=== PATIENT | female | born 1970 | race Caucasian/White ===

== ENCOUNTER 2016-09-22 08:57 | Emergency (ER) | payer OTHER ==
[2016-09-22] MEDS ORDERED: ONDANSETRON 4MG/2ML VIAL (J2405) As Ordered ONE (09:55)
[2016-09-22] MEDS ORDERED: KETOROLAC 30 MG/ML VIAL (J1885) As Ordered ONE (09:55)
[2016-09-22 10:11] LABS: BASO # 0.2 K/mm3 (0.0-0.2); BASO % 1.4 % (0.0-1.0); EOS # 0.2 K/mm3 (0.0-0.50); EOS % 1.3 % (0.0-3.0); LARGE UNSTAINED CELL # 0.2 K/mm3 (0.0-0.4); LARGE UNSTAINED CELL % 1.1 % (0.0-4.0); LYMPH # 2.5 K/mm3 (1.5-4.5); LYMPH % 15.1 % (24.0-44.0); MEAN CORPUSCULAR HEMOGLOBIN 32.3 pg (27.0-33.0); MEAN CORPUSCULAR HGB CONC 33.1 g/dl (32.0-36.5); MEAN CORPUSCULAR VOLUME 97.7 fl (80.0-96.0); MONO # 0.6 K/mm3 (0.0-0.8); MONO % 3.9 % (0.0-5.0); NEUTROPHILS # 12.1 K/mm3 (1.8-7.7); NEUTROPHILS % 77.2 % (36.0-66.0); PLATELET COUNT, AUTOMATED 280 k/mm3 (150-450); RED CELL DISTRIBUTION WIDTH 12.8 % (11.5-14.5); WHITE BLOOD COUNT 15.7 K/mm3 (4.0-10.0)
[2016-09-22 10:18] LABS: ALBUMIN 4.2 GM/DL (3.2-5.2); ALKALINE PHOSPHATASE 74 U/L (45-117); ALT/SGPT 29 U/L (12-78); AMYLASE 47 U/L (25-115); ANION GAP 5 MEQ/L (8-16); AST/SGOT 20 U/L (15-37); BILIRUBIN,DIRECT 0.1 MG/DL (0.0-0.2); BILIRUBIN,TOTAL 0.5 MG/DL (0.2-1.0); BLOOD UREA NITROGEN 11 MG/DL (7-18); CALCIUM LEVEL 9.3 MG/DL (8.5-10.1); CARBON DIOXIDE LEVEL 29 MEQ/L (21-32); CHLORIDE LEVEL 105 MEQ/L (98-107); CREATININE FOR GFR 0.72 MG/DL (0.55-1.02); GLOMERULAR FILTRATION RATE > 60.0 (>58); GLUCOSE, FASTING 84 MG/DL (70-105); POTASSIUM SERUM 3.9 MEQ/L (3.5-5.1); SODIUM LEVEL 139 MEQ/L (136-145); TOTAL PROTEIN 7.2 GM/DL (6.4-8.2)
--- NOTE | 2016-09-22 11:06 | REP ---
CT study of the abdomen and pelvis without IV or oral contrast: History: Abdominal pain right-sided and umbilical. 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 The lung bases are clear. There is an accessory splenule in the left upper quadrant. The liver and spleen are normal in size and otherwise normal and homogeneous in texture. The gallbladder is unremarkable. No pancreatic lesion is seen. No adrenal mass is observed on either side. There is no evidence of hydronephrosis, intrarenal calculus or mass lesion. Normal caliber aorta is seen. No retroperitoneal mass or adenopathy is observed. There is scattered pancolonic diverticulosis without CT evidence of diverticulitis. A normal appendix is seen at the tip of the cecum. Uterus is mildly enlarged measuring 10.4 x 5.8 x 7.3 cm. No free fluid is seen. No adnexal mass or significant cyst is seen. No abdominal wall defect is observed. No evidence of free intraperitoneal air. No bony destructive lesion is seen. Impression: Pancolonic diverticulosis without CT evidence of diverticulitis. Normal appendix seen. No acute intra-abdominal abnormality. Mildly enlarged uterus. Signed by Monroe Grady MD 09/22/2016 12:33 P
--- NOTE | 2016-09-22 11:12 | REP ---
RIGHT UPPER QUADRANT SONOGRAPHY: HISTORY: Biliary colic. COMPARISON STUDY: CT abdomen and pelvis from this date. FINDINGS: Scanning through the right upper quadrant of the abdomen demonstrates a normal sized, thin-walled gallbladder without evidence of stone or polyp. The gallbladder appears partially contracted. The patient relates having eaten this a.m. Common bile duct is normal measuring 0.4 cm in greatest diameter. There is a 0.7 cm hyperechoic nodule in the left lobe consistent with a benign hemangioma. No other focal liver lesion is seen. Liver size is normal. No pancreatic abnormality is observed. No right renal abnormality is seen. There is no evidence of ascites. The right kidney measures 11.8 x 6.2 x 4.7 cm. IMPRESSION: Partially contracted appearing gallbladder, 0.7 cm benign hemangioma in the left lobe, otherwise negative right upper quadrant sonography. Signed by Monroe Grady MD 09/22/2016 12:33 P
--- NOTE | 2016-09-22 12:56 | EDDOCDS ---
Physician Documentation [facility] Name: Sheyla Amin Age: 46 yrs Sex: Female : 1970 Arrival Date: 09/22/2016 Time: 08:57 Bed I5 / M5 Private MD: Disposition: 09/22/16 12:18 Discharged to Home/Self Care. Impression: Generalized abdominal pain, Nausea, Diverticulosis of large intestine without perforation or abscess without bleeding, Hemangioma - 17cm Benign Hemangioma in Left Lobe of Liver found on U/S of Gallbladder. - Condition is Stable. - Discharge Instructions: Abdominal Pain, Adult, Nausea, Adult, Diverticulosis. - Prescriptions for Bentyl 20 mg Oral Tablet - take 1 tablet by ORAL route every 6 hours As needed; 20 tablet. Cipro 500 mg Oral Tablet - take 1 tablet by ORAL route every 12 hours; 14 tablet. Percocet 5- 325 mg Oral Tablet - take 1 tablet by ORAL route every 6 hours As needed MDD: 4 tabs; 10 tablet. Reglan 10 mg Oral Tablet - take 1 tablet by ORAL route every 6 hours take 30 minutes before meals and at bedtime; 20 tablet. - Medication Reconciliation, Local Pharmacy Hours, Referral List Call for Appointment, Work Release Form - 2 day form. - [facility] ; When: 1 - 2 days; Reason: Recheck today's complaints, Continuance of care. Follow up: Emergency Department; Reason: Worsening of conditions. Follow up: David Carver MD; When: Call to arrange an appointment; Reason: Further diagnostic work-up, Recheck today's complaints, Continuance of care. - Problem is new. - Symptoms have improved. Historical: - Allergies: SUCCINYLCHOLINE; - Home Meds: 1. none - PMHx: Seasonal Allergies; - PSHx: ; - Social history: Smoking status: Patient uses tobacco products, current every day smoker. No barriers to communication noted, The patient speaks fluent Togolese, Speaks appropriately for age. - Family history: Not pertinent. - : The pt / caregiver states he / she is not on anticoagulants. Home medication list is obtained from the patient. - Exposure Risk Screening:: None identified. 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 6 in. (167.64 cm) (R); 10:30 Pain 3/10; mcp 10:31 jam1 10:42 BP 120 / 65; Pulse 90; Resp 20; Temp 97.9; Pulse Ox 99% ; Pain 2/10; jam1 12:21 BP 115 / 65; Pulse 76; Resp 20; Temp 97.0; Pulse Ox 99% ; Pain 0/10; jam1 09:01 Body Mass Index 21.63 (60.78 kg, 167.64 cm) srm 10:31 pt at ultrosound at this time could not do v/s jam1 MDM: 09:40 NS 0.9% 1000 ml IV at bolus once ordered. ef1 09:40 Ondansetron 4 mg IVP once ordered. ef1 09:40 IV Saline Lock ordered. ef1 09:40 Undress patient appropriately for examination ordered. ef1 09:40 UCG by Nursing ordered. ef1 09:40 ketorolac 30 mg IVP once ordered. ef1 09:41 CT ABD & PELVIS: No Contrast Ordered. EDMS 09:41 Amylase Ordered. EDMS 09:41 Basic Metabolic Profile Ordered. EDMS 09:41 CBC with Diff Ordered. EDMS 09:42 Lipase Ordered. EDMS 09:42 Liver Profile Ordered. EDMS 09:42 Urinalysis Ordered. EDMS 09:42 Urine Culture Ordered. EDMS 09:42 Gallbladder US Ordered. EDMS 09:42 Financial registration complete. lg 09:42 NOTHING BY MOUTH+DIET ordered. EDMS 09:58 [facility] Payment Agreement was scanned into [employer] and attached to record. lg 10:46 Basic Metabolic Profile Reviewed. ef1 10:46 CBC with Diff Reviewed. ef1 10:46 Amylase Reviewed. ef1 10:46 Lipase Reviewed. ef1 10:46 Liver Profile Reviewed. ef1 10:46 Urinalysis Reviewed. ef1 12:15 CT ABD & PELVIS: No Contrast Reviewed. ef1 12:15 Gallbladder US Reviewed. ef1 Point of Care Testing: Urine : 09:52 hCG Reading: Negative; jam1 Ranges: Administered Medications: 10:00 Drug: NS 0.9% 1000 ml [sodium chloride 0.9 % intravenous solution] Route: IV; Rate: kpj bolus; Site: left antecubital; 12:30 Follow up: IV Status: Completed infusion; Infusion discontinued [facility] 10:00 Drug: Ondansetron 4 mg [ondansetron HCl 2 mg/mL intravenous solution (2 mL)] Route: kpj IVP; Site: left antecubital; 10:02 Drug: ketorolac 30 mg [ketorolac 30 mg/mL (1 mL) injection solution (1 mL)] Route: IVP; [facility] Site: left antecubital; 10:30 Follow up: Pain 10/30 Adult; Response: Pain is decreased [facility] 10:30 Follow up: Response: Pain is decreased [facility] Signatures: Dispatcher [employer] EDDaxa Kohli RN RN Lori Poe RN RN srm Ganter, LoriLee, Tha Reg lg Orin Sharp, PA-C PA-C Catrachita Greene RN [facility] The chart was reviewed and I authenticate all verbal orders and agree with the evaluation and treatment provided.Attachments: 09:58 [facility] Payment Agreement lg MTDD
--- NOTE | 2016-09-22 12:56 | EDDOCDS ---
Nurse's Notes [facility] Name: Sheyla Amin Age: 46 yrs Sex: Female : 1970 Arrival Date: 09/22/2016 Time: 08:57 Bed I5 / M5 Private MD: Diagnosis: Generalized abdominal pain;Nausea;Diverticulosis of large intestine without perforation or abscess without bleeding;Hemangioma-17cm Benign Hemangioma in Left Lobe of Liver found on U/S of Gallbladder Presentation: 09/22 09:00 Presenting complaint: Patient states: upper abd pain since last night. nausea no srm vomiting or diarrhea. no abnormal vag bledding. Risk factors: the patient reports no vaginal bleeding. Suicide/Homicide risk assessment- the patient denies having any suicidal and/or homicidal ideations and does not present with any other emotional, behavioral or mental health complaints. Status: Patient is not a patient service technician pst or dependent. Transition of care: patient was not received from another setting of care. 09:00 Acuity: KAYLIN Level 3 srm 09:00 Method Of Arrival: Walkin/Carried/Asstd srm 09:03 Adult Sepsis Screening: The patient does not have new or worsening altered mentation. srm Patient's respiratory rate is less than 22. Systolic blood pressure is greater than 100. Patient has a qSOFA score of 0- Negative Sepsis Screen. Triage Assessment: 09:01 General: Appears in no apparent distress, Behavior is appropriate for age, cooperative. srm Pain: Pain currently is 5 out of 10 on a pain scale. HIV screening NA for this visit Offered previously. GI: Reports upper abdominal pain, nausea. 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 none - PMHx: Seasonal Allergies; - PSHx: ; - Social history: Smoking status: Patient uses tobacco products, current every day smoker. No barriers to communication noted, The patient speaks fluent Tajik, Speaks appropriately for age. - Family history: Not pertinent. - : The pt / caregiver states he / she is not on anticoagulants. Home medication list is obtained from the patient. - Exposure Risk Screening:: None identified. Screenin:54 Screening information is obtained from the patient. Fall risk: No risks identified. mcp Assistance ADL's: requires no assistance with activities of daily living. Abuse/DV Screen: The patient / caregiver reports he/she is: not in a situation that causes fear, pain or injury. Nutritional screening: No deficits noted. Advance Directives: Currently, there is no health care proxy. There is no active DNR order. There is no Power of Pension Adviser. home support is adequate. Assessment: 09:53 General: Appears uncomfortable, Behavior is cooperative. Pain: Location: epigastric mcp area Pain currently is 7 out of 10 on a pain scale. Neurological: No deficits noted. Respiratory: Airway is patent Respiratory effort is even, unlabored. GI: Abdomen is non- distended Bowel sounds present X 4 quads. Abd is soft X 4 quads Abd is tender to palpation in epigastric area. Derm: Skin is pink, warm & dry. 10:45 General: Pt states feels much better. IV patent--site without any signs of infiltration.mcp 11:30 Reassessment: Patient appears in no apparent distress at this time. Patient states kpj feeling better. Patient states symptoms have improved. waiting disposition IV intact. denies nausea or vomiting, denies pain.. 12:30 General: Appears in no apparent distress, comfortable, Behavior is appropriate for age, kpj pleasant. Pain: Denies pain. Neurological: Level of Consciousness is awake, alert. Respiratory: Airway is patent Respiratory effort is even, unlabored, Respiratory pattern is regular, symmetrical. GI: Abdomen is non- distended Bowel sounds present X 4 quads. Abd is soft X 4 quads Abd is non tender X 4 quads. Derm: Skin is pink, warm & dry. Vital Signs: 09:01 BP 114 / 61; Pulse 96; Resp 18; Temp 97.1(O); Pulse Ox 100% on R/A; Weight 60.78 kg; srm Height 5 ft. 6 in. (167.64 cm) (R); 10:30 Pain 3/10; mcp 10:31 jam1 10:42 BP 120 / 65; Pulse 90; Resp 20; Temp 97.9; Pulse Ox 99% ; Pain 2/10; jam1 12:21 BP 115 / 65; Pulse 76; Resp 20; Temp 97.0; Pulse Ox 99% ; Pain 0/10; jam1 09:01 Body Mass Index 21.63 (60.78 kg, 167.64 cm) [facility] 10:31 pt at ultrosound at this time could not do v/s jam1 Vitals: 09:01 Log In Time: September 22, 2016 at 08:59. [facility] ED Course: 08:58 Patient visited by Minerva Horton. 5 08:58 Patient moved to Waiting jp5 09:01 Triage Initiated srm 09:04 Patient moved to Triage 1 srm 09:28 Orin Sharp PA-C is PHCP. ef1 09:28 Stoney Minaya MD is Attending Physician. ef1 09:32 Patient visited by Orin Sharp PA-C. ef1 09:45 Patient moved to I5 / jam 09:52 Urine Culture Sent. [facility] 09:52 Urinalysis Sent. [facility] 09:52 Amylase Sent. [facility] 09:52 Basic Metabolic Profile Sent. [facility] 09:52 CBC with Diff Sent. [facility] 09:52 Lipase Sent. [facility] 09:52 Liver Profile Sent. [facility] 09:55 Patient visited by Catrachita Talbert RN. [facility] 09:55 The patient / caregiver is instructed regarding the plan of care and ED course. Patient mcp has correct armband on for positive identification. Placed in gown. Bed in low position. Call light in reach. Adult w/ patient. 09:55 Inserted saline lock: 20 gauge in left antecubital area and blood collected. The [facility] patient tolerated the procedure well. Missed attempts: 20 gauge X 1 in right antecubital area, Bleeding controlled, band aid applied, catheter tip intact. Labs drawn. (by ED staff). Sent per order to lab. 09:56 Pt greeted and oriented to ED. Patient advised of names of staff involved in care, [facility] location of call tee, wait times and NPO status. Patient has correct armband on for positive identification. Placed in gown. Bed in low position. Call light in reach. Side rails up X 1. Adult w/ patient. Door closed. 09:58 [facility] Payment Agreement was scanned into [employer] and attached to record. lg 10:14 Patient moved to Ultrasound br3 10:46 Patient visited by Orin Sharp PA-C. ef1 10:50 Patient moved to I5 / jam1 11:34 Patient visited by Catrachita Talbert RN. mcp 11:44 CT ABD & PELVIS: No Contrast Returned. EDMS 11:44 Gallbladder US Returned. EDMS 12:15 Patient visited by Orin Sharp PA-C. ef1 12:16 Patient visited by Roxanne Mcmahon PCA. jam1 12:18 [facility] is Referral Physician. ef1 12:27 David Carver MD is Referral Physician. ef1 12:30 No apparent distress. kpj 12:30 The patient / caregiver is instructed regarding the plan of care and ED course. kpj 12:30 Discontinued IV lock intact, bleeding controlled, pressure dressing applied, No kpj redness/swelling at site. No procedures done that require assistance. Administered Medications: 10:00 Drug: NS 0.9% 1000 ml [sodium chloride 0.9 % intravenous solution] Route: IV; Rate: kpj bolus; Site: left antecubital; 12:30 Follow up: IV Status: Completed infusion; Infusion discontinued kpj 10:00 Drug: Ondansetron 4 mg [ondansetron HCl 2 mg/mL intravenous solution (2 mL)] Route: kpj IVP; Site: left antecubital; 10:02 Drug: ketorolac 30 mg [ketorolac 30 mg/mL (1 mL) injection solution (1 mL)] Route: IVP; kpj Site: left antecubital; 10:30 Follow up: Pain 3/10 Adult; Response: Pain is decreased [facility] 10:30 Follow up: Response: Pain is decreased kp Point of Care Testing: Urine : 09:52 hCG Reading: Negative; jam1 Ranges: Order Results: Lab Order: Amylase; SPEC'M 09/22/16 09:50 Test: AMYLASE; Value: 47; Range: 25-115; Units: U/L; Status: F Lab Order: Basic Metabolic Profile; SPEC'M 09/22/16 09:50 Test: GLUCOSE, FASTING; Value: 84; Range: 70-105; Units: MG/DL; Status: F Test: BLOOD UREA NITROGEN; Value: 11; Range: 7-18; Units: MG/DL; Status: F Test: CREATININE FOR GFR; Value: 0.72; Range: 0.55-1.02; Units: MG/DL; Status: F Test: GLOMERULAR FILTRATION RATE; Value: > 60.0; Range: >58; Status: F Test: SODIUM LEVEL; Value: 139; Range: 136-145; Units: MEQ/L; Status: F Test: POTASSIUM SERUM; Value: 3.9; Range: 3.5-5.1; Units: MEQ/L; Status: F Test: CHLORIDE LEVEL; Value: 105; Range: 98-107; Units: MEQ/L; Status: F Test: CARBON DIOXIDE LEVEL; Value: 29; Range: 21-32; Units: MEQ/L; Status: F Test: ANION GAP; Value: 5; Range: 8-16; Abnormal: Below low normal; Units: MEQ/L; Status: F Test: CALCIUM LEVEL; Value: 9.3; Range: 8.5-10.1; Units: MG/DL; Status: F Test Note: ; Units are mL/min/1.73 m2 Chronic Kidney Disease Staging per NKF: Stage I & II GFR >=60 Normal to Mildly Decreased Stage III GFR 30-59 Moderately Decreased Stage IV GFR 15-29 Severely Decreased Stage V GFR <15 Very Little GFR Left ESRD GFR <15 on CUSTOMER SERVICE REPRESENTATIVE Lab Order: CBC with Diff; SPEC'M 09/22/16 09:50 Test: WHITE BLOOD COUNT; Value: 15.7; Range: 4.0-10.0; Abnormal: Above high normal; Units: K/mm3; Status: F Test: RED BLOOD COUNT; Value: 4.82; Range: 4.00-5.40; Units: M/mm3; Status: F Test: HEMOGLOBIN; Value: 15.6; Range: 12.0-16.0; Units: g/dl; Status: F Test: HEMATOCRIT; Value: 47.1; Range: 36.0-47.0; Abnormal: Above high normal; Units: %; Status: F Test: MEAN CORPUSCULAR VOLUME; Value: 97.7; Range: 80.0-96.0; Abnormal: Above high normal; Units: fl; Status: F Test: MEAN CORPUSCULAR HEMOGLOBIN; Value: 32.3; Range: 27.0-33.0; Units: pg; Status: F Test: MEAN CORPUSCULAR HGB CONC; Value: 33.1; Range: 32.0-36.5; Units: g/dl; Status: F Test: RED CELL DISTRIBUTION WIDTH; Value: 12.8; Range: 11.5-14.5; Units: %; Status: F Test: PLATELET COUNT, AUTOMATED; Value: 280; Range: 150-450; Units: k/mm3; Status: F Test: NEUTROPHILS %; Value: 77.2; Range: 36.0-66.0; Abnormal: Above high normal; Units: %; Status: F Test: LYMPH %; Value: 15.1; Range: 24.0-44.0; Abnormal: Below low normal; Units: %; Status: F Test: MONO %; Value: 3.9; Range: 0.0-5.0; Units: %; Status: F Test: EOS %; Value: 1.3; Range: 0.0-3.0; Units: %; Status: F Test: BASO %; Value: 1.4; Range: 0.0-1.0; Abnormal: Above high normal; Units: %; Status: F Test: LARGE UNSTAINED CELL %; Value: 1.1; Range: 0.0-4.0; Units: %; Status: F Test: NEUTROPHILS #; Value: 12.1; Range: 1.8-7.7; Abnormal: Above high normal; Units: K/mm3; Status: F Test: LYMPH #; Value: 2.5; Range: 1.5-4.5; Units: K/mm3; Status: F Test: MONO #; Value: 0.6; Range: 0.0-0.8; Units: K/mm3; Status: F Test: EOS #; Value: 0.2; Range: 0.0-0.50; Units: K/mm3; Status: F Test: BASO #; Value: 0.2; Range: 0.0-0.2; Units: K/mm3; Status: F Test: LARGE UNSTAINED CELL #; Value: 0.2; Range: 0.0-0.4; Units: K/mm3; Status: F Lab Order: Lipase; SPEC09/22/16 09:50 Test: LIPASE; Value: 133; Range: 73-393; Units: U/L; Status: F Lab Order: Liver Profile; SPEC'09/22/16 09:50 Test: AST/SGOT; Value: 20; Range: 15-37; Units: U/L; Status: F Test: ALT/SGPT; Value: 29; Range: 12-78; Units: U/L; Status: F Test: ALKALINE PHOSPHATASE; Value: 74; Range: 45-117; Units: U/L; Status: F Test: BILIRUBIN,TOTAL; Value: 0.5; Range: 0.2-1.0; Units: MG/DL; Status: F Test: BILIRUBIN,DIRECT; Value: 0.1; Range: 0.0-0.2; Units: MG/DL; Status: F Test: TOTAL PROTEIN; Value: 7.2; Range: 6.4-8.2; Units: GM/DL; Status: F Test: ALBUMIN; Value: 4.2; Range: 3.2-5.2; Units: GM/DL; Status: F Test: ALBUMIN/GLOBULIN RATIO; Value: 1.40; Range: 1.00-1.93; Status: F Lab Order: Urinalysis; SPEC'M 09/22/16 09:47 Test: APPEARANCE, URINE; Value: CLEAR; Range: CLEAR; Status: F Test: COLOR, URINE; Value: STRAW; Range: YELLOW; Status: F Test: PH,URINE; Value: 7.0; Range: 5.0-9.0; Units: UNITS; Status: F Test: SPECIFIC GRAVITY URINE AUTO; Value: 1.005; Range: 1.002-1.035; Status: F Test: PROTEIN, URINE AUTO; Value: NEGATIVE; Range: NEGATIVE; Units: mg/dL; Status: F Test: GLUCOSE, URINE (UA) AUTO; Value: NEGATIVE; Range: NEGATIVE; Units: mg/dL; Status: F Test: KETONE, URINE AUTO; Value: NEGATIVE; Range: NEGATIVE; Units: mg/dL; Status: F Test: UROBILINOGEN, URINE AUTO; Value: 0.2; Range: 0.0-2.0; Units: mg/dL; Status: F Test: BILIRUBIN, URINE AUTO; Value: NEGATIVE; Range: NEGATIVE; Status: F Test: NITRITE, URINE AUTO; Value: NEGATIVE; Range: NEGATIVE; Status: F Test: LEUKOCYTE ESTERASE, URINE AUTO; Value: NEGATIVE; Range: NEGATIVE; Status: F Test: BLOOD, URINE BLOOD; Value: NEGATIVE; Range: NEGATIVE; Status: F Test: WBC, URINE AUTO; Value: 0; Range: 0-3; Units: /HPF; Status: F Test: RBC, URINE AUTO; Value: 2; Range: 0-3; Units: /HPF; Status: F Test: BACTERIA, URINE AUTO; Value: NEGATIVE; Range: NEGATIVE; Status: F Test: SQUAMOUS EPITHELIAL CELL UR AU; Value: 0; Range: 0-6; Units: /HPF; Status: F Test: MUCUS, URINE; Value: SMALL; Range: NEGATIVE; Status: F Test: HYALINE CAST, URINE AUTO; Value: 0; Range: 0-1; Units: /LPF; Status: F Radiology Order: CT ABD & PELVIS: No Contrast Test: CT ABD & PELVIS: No Contrast REASON FOR EXAMINATION: Abdomen Pain; CT study of the abdomen and pelvis without IV or oral contrast:; ; History: Abdominal pain right-sided and umbilical.; ; Findings: Preliminary digital supervisor twisting department radiograph demonstrates bilateral tubal; ligation clamps in the pelvis and a normal bowel gas pattern. The lung bases are; clear.; ; There is an accessory splenule in the left upper quadrant. The liver and spleen; are normal in size and otherwise normal and homogeneous in texture. The; gallbladder is unremarkable. No pancreatic lesion is seen. No adrenal mass is; observed on either side. There is no evidence of hydronephrosis, intrarenal; calculus or mass lesion. Normal caliber aorta is seen. No retroperitoneal mass; or adenopathy is observed. There is scattered pancolonic diverticulosis without; CT evidence of diverticulitis. A normal appendix is seen at the tip of the; cecum. Uterus is mildly enlarged measuring 10.4 x 5.8 x 7.3 cm. No free fluid; is seen. No adnexal mass or significant cyst is seen. No abdominal wall defect; is observed. No evidence of free intraperitoneal air. No bony destructive; lesion is seen.; ; Impression:; ; Pancolonic diverticulosis without CT evidence of diverticulitis. Normal appendix; seen. No acute intra-abdominal abnormality. Mildly enlarged uterus.; ; ; ; ; Unreviewed; Radiology Order: Gallbladder US Test: Gallbladder US REASON FOR EXAMINATION: Biliary Colic; RIGHT UPPER QUADRANT SONOGRAPHY:; ; HISTORY: Biliary colic.; ; COMPARISON STUDY: CT abdomen and pelvis from this date.; ; FINDINGS: Scanning through the right upper quadrant of the abdomen demonstrates a; normal sized, thin-walled gallbladder without evidence of stone or polyp. The; gallbladder appears partially contracted. The patient relates having eaten this; a.m. Common bile duct is normal measuring 0.4 cm in greatest diameter. There is; a 0.7 cm hyperechoic nodule in the left lobe consistent with a benign hemangioma.; No other focal liver lesion is seen. Liver size is normal. No pancreatic; abnormality is observed. No right renal abnormality is seen. There is no; evidence of ascites. The right kidney measures 11.8 x 6.2 x 4.7 cm.; ; IMPRESSION:; Partially contracted appearing gallbladder, 0.7 cm benign hemangioma in the left; lobe, otherwise negative right upper quadrant sonography.; ; ; ; ; Unreviewed; Outcome: 12:18 Discharge ordered by Provider. ef1 12:30 Discharge Assessment: Patient awake, alert and oriented x 3. No cognitive and/or [facility] functional deficits noted. Patient verbalized understanding of disposition instructions. patient administered narcotics -. 12:30 The following High Risk Discharge criteria are identified: None. Discharged to home [facility] ambulatory, with significant other. Condition: stable. Discharge instructions given to patient, Instructed on discharge instructions, follow up and referral plans. medication usage, no driving heavy equipment, diet, no drinking with medication, Demonstrated understanding of instructions, medications, Pt was receptive of discharge instructions/ teaching. Prescriptions given X 4, Work note provided to patient. CT Study completed. Property sent home with patient. 12:54 Patient left the ED. [facility] Signatures: Dispatcher [employer] EDMS Daxa Barbour RN RN Lori Poe RN RN srm Peters, Mary, RN RN mcp Murphy, Jane, DOMINGO FRAME BENDER jam1 Nelia Cadena, Tha Reg lg Orin Sharp, PA-C PA-C ef1 Dorcas Briseno br3 Minerva Horton jp5 MTDD
--- NOTE | 2016-09-24 13:55 | EDDOCDS ---
Physician Documentation [facility] Name: Sheyla Amin Age: 46 yrs Sex: Female : 1970 Arrival Date: 09/22/2016 Time: 08:57 Bed I5 / M5 Private MD: Disposition: 09/22/16 12:18 Discharged to Home/Self Care. Impression: Generalized abdominal pain, Nausea, Diverticulosis of large intestine without perforation or abscess without bleeding, Hemangioma - 17cm Benign Hemangioma in Left Lobe of Liver found on U/S of Gallbladder. - Condition is Stable. - Discharge Instructions: Abdominal Pain, Adult, Nausea, Adult, Diverticulosis. - Prescriptions for Bentyl 20 mg Oral Tablet - take 1 tablet by ORAL route every 6 hours As needed; 20 tablet. Cipro 500 mg Oral Tablet - take 1 tablet by ORAL route every 12 hours; 14 tablet. Percocet 5- 325 mg Oral Tablet - take 1 tablet by ORAL route every 6 hours As needed MDD: 4 tabs; 10 tablet. Reglan 10 mg Oral Tablet - take 1 tablet by ORAL route every 6 hours take 30 minutes before meals and at bedtime; 20 tablet. - Medication Reconciliation, Local Pharmacy Hours, Referral List Call for Appointment, Work Release Form - 2 day form. - [facility] ; When: 1 - 2 days; Reason: Recheck today's complaints, Continuance of care. Follow up: Emergency Department; Reason: Worsening of conditions. Follow up: David Carver MD; When: Call to arrange an appointment; Reason: Further diagnostic work-up, Recheck today's complaints, Continuance of care. - Problem is new. - Symptoms have improved. Historical: - Allergies: SUCCINYLCHOLINE; - Home Meds: 1. none - PMHx: Seasonal Allergies; - PSHx: ; - Social history: Smoking status: Patient uses tobacco products, current every day smoker. No barriers to communication noted, The patient speaks fluent [place], Speaks appropriately for age. - Family history: Not pertinent. - : The pt / caregiver states he / she is not on anticoagulants. Home medication list is obtained from the patient. - Exposure Risk Screening:: None identified. 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 6 in. (167.64 cm) (R); 10:30 Pain 3/10; mcp 10:31 jam1 10:42 BP 120 / 65; Pulse 90; Resp 20; Temp 97.9; Pulse Ox 99% ; Pain 2/10; jam1 12:21 BP 115 / 65; Pulse 76; Resp 20; Temp 97.0; Pulse Ox 99% ; Pain 0/10; jam1 09:01 Body Mass Index 21.63 (60.78 kg, 167.64 cm) srm 10:31 pt at ultrosound at this time could not do v/s jam1 MDM: 09:40 NS 0.9% 1000 ml IV at bolus once ordered. ef1 09:40 Ondansetron 4 mg IVP once ordered. ef1 09:40 IV Saline Lock ordered. ef1 09:40 Undress patient appropriately for examination ordered. ef1 09:40 UCG by Nursing ordered. ef1 09:40 ketorolac 30 mg IVP once ordered. ef1 09:41 CT ABD & PELVIS: No Contrast Ordered. EDMS 09:41 Amylase Ordered. EDMS 09:41 Basic Metabolic Profile Ordered. EDMS 09:41 CBC with Diff Ordered. EDMS 09:42 Lipase Ordered. EDMS 09:42 Liver Profile Ordered. EDMS 09:42 Urinalysis Ordered. EDMS 09:42 Urine Culture Ordered. EDMS 09:42 Gallbladder US Ordered. EDMS 09:42 Financial registration complete. lg 09:42 NOTHING BY MOUTH+DIET ordered. EDMS 09:58 [id number] Payment Agreement was scanned into MyCheck and attached to record. lg 10:46 Basic Metabolic Profile Reviewed. ef1 10:46 CBC with Diff Reviewed. ef1 10:46 Amylase Reviewed. ef1 10:46 Lipase Reviewed. ef1 10:46 Liver Profile Reviewed. ef1 10:46 Urinalysis Reviewed. ef1 12:15 CT ABD & PELVIS: No Contrast Reviewed. ef1 12:15 Gallbladder US Reviewed. ef1 15:14 T-Sheet-- Draft Copy was scanned into MyCheck and attached to record. gb Point of Care Testing: Urine : 09:52 hCG Reading: Negative; jam1 Ranges: Administered Medications: 10:00 Drug: NS 0.9% 1000 ml [sodium chloride 0.9 % intravenous solution] Route: IV; Rate: kpj bolus; Site: left antecubital; 12:30 Follow up: IV Status: Completed infusion; Infusion discontinued [facility] 10:00 Drug: Ondansetron 4 mg [ondansetron HCl 2 mg/mL intravenous solution (2 mL)] Route: kpj IVP; Site: left antecubital; 10:02 Drug: ketorolac 30 mg [ketorolac 30 mg/mL (1 mL) injection solution (1 mL)] Route: IVP; [facility] Site: left antecubital; 10:30 Follow up: Pain 10/30 Adult; Response: Pain is decreased [facility] 10:30 Follow up: Response: Pain is decreased [facility] Signatures: Dispatcher MedHost EDDaxa Kohli RN RN [facility] Lori Gonzalez RN RN [facility] Lisa Moreno, Reg Reg gb Nelia Cadena, Reg Reg lg Orin Sharp, PA-C PA-Elizabeth ef1 Catrachita Talbert RN [facility] The chart was reviewed and I authenticate all verbal orders and agree with the evaluation and treatment provided.Attachments: 09:58 [facility] Payment Agreement lg 15:14 T-Sheet-- Draft Copy Chart Complete MTDD
--- NOTE | 2016-09-24 13:55 | EDDOCDS ---
Nurse's Notes [facility] Name: Sheyla Amin Age: 46 yrs Sex: Female : 1970 Arrival Date: 09/22/2016 Time: 08:57 Bed I5 / M5 Private MD: Diagnosis: Generalized abdominal pain;Nausea;Diverticulosis of large intestine without perforation or abscess without bleeding;Hemangioma-17cm Benign Hemangioma in Left Lobe of Liver found on U/S of Gallbladder Presentation: 09/22 09:00 Presenting complaint: Patient states: upper abd pain since last night. nausea no srm vomiting or diarrhea. no abnormal vag bledding. Risk factors: the patient reports no vaginal bleeding. Suicide/Homicide risk assessment- the patient denies having any suicidal and/or homicidal ideations and does not present with any other emotional, behavioral or mental health complaints. 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 Transition of care: patient was not received from another setting of care. 09:00 Acuity: KAYILN Level 3 srm 09:00 Method Of Arrival: Walkin/Carried/Asstd srm 09:03 Adult Sepsis Screening: The patient does not have new or worsening altered mentation. srm Patient's respiratory rate is less than 22. Systolic blood pressure is greater than 100. Patient has a qSOFA score of 0- Negative Sepsis Screen. Triage Assessment: 09:01 General: Appears in no apparent distress, Behavior is appropriate for age, cooperative. srm Pain: Pain currently is 5 out of 10 on a pain scale. HIV screening NA for this visit Offered previously. GI: Reports upper abdominal pain, nausea. 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 none - PMHx: Seasonal Allergies; - PSHx: ; - Social history: Smoking status: Patient uses tobacco products, current every day smoker. No barriers to communication noted, The patient speaks fluent Macedonian, Speaks appropriately for age. - Family history: Not pertinent. - : The pt / caregiver states he / she is not on anticoagulants. Home medication list is obtained from the patient. - Exposure Risk Screening:: None identified. Screenin:54 Screening information is obtained from the patient. Fall risk: No risks identified. mcp Assistance ADL's: requires no assistance with activities of daily living. Abuse/DV Screen: The patient / caregiver reports he/she is: not in a situation that causes fear, pain or injury. Nutritional screening: No deficits noted. Advance Directives: Currently, there is no health care proxy. There is no active DNR order. There is no Power of Utility Bill Collector. home support is adequate. Assessment: 09:53 General: Appears uncomfortable, Behavior is cooperative. Pain: Location: epigastric mcp area Pain currently is 7 out of 10 on a pain scale. Neurological: No deficits noted. Respiratory: Airway is patent Respiratory effort is even, unlabored. GI: Abdomen is non- distended Bowel sounds present X 4 quads. Abd is soft X 4 quads Abd is tender to palpation in epigastric area. Derm: Skin is pink, warm & dry. 10:45 General: Pt states feels much better. IV patent--site without any signs of infiltration.mcp 11:30 Reassessment: Patient appears in no apparent distress at this time. Patient states kpj feeling better. Patient states symptoms have improved. waiting disposition IV intact. denies nausea or vomiting, denies pain.. 12:30 General: Appears in no apparent distress, comfortable, Behavior is appropriate for age, kpj pleasant. Pain: Denies pain. Neurological: Level of Consciousness is awake, alert. Respiratory: Airway is patent Respiratory effort is even, unlabored, Respiratory pattern is regular, symmetrical. GI: Abdomen is non- distended Bowel sounds present X 4 quads. Abd is soft X 4 quads Abd is non tender X 4 quads. Derm: Skin is pink, warm & dry. Vital Signs: 09:01 BP 114 / 61; Pulse 96; Resp 18; Temp 97.1(O); Pulse Ox 100% on R/A; Weight 60.78 kg; srm Height 5 ft. 6 in. (167.64 cm) (R); 10:30 Pain 3/10; mcp 10:31 jam1 10:42 BP 120 / 65; Pulse 90; Resp 20; Temp 97.9; Pulse Ox 99% ; Pain 2/10; jam1 12:21 BP 115 / 65; Pulse 76; Resp 20; Temp 97.0; Pulse Ox 99% ; Pain 0/10; jam1 09:01 Body Mass Index 21.63 (60.78 kg, 167.64 cm) [facility] 10:31 pt at ultrosound at this time could not do v/s jam1 Vitals: 09:01 Log In Time: September 22, 2016 at 08:59. [facility] ED Course: 08:58 Patient visited by Minerva Horton. 5 08:58 Patient moved to Waiting jp5 09:01 Triage Initiated srm 09:04 Patient moved to Triage 1 srm 09:28 Orin Sharp PA-C is PHCP. ef1 09:28 Stoney Minaya MD is Attending Physician. ef1 09:32 Patient visited by Orin Sharp PA-C. ef1 09:45 Patient moved to I5 / jam 09:52 Urine Culture Sent. [facility] 09:52 Urinalysis Sent. [facility] 09:[address] [facility] 09:52 Basic Metabolic Profile Sent. [facility] 09:52 CBC with Diff Sent. [facility] 09:[address] [facility] 09:52 Liver Profile Sent[address] [facility] 09:55 Patient visited by Catrachita Talbert RN. [facility] 09:55 The patient / caregiver is instructed regarding the plan of care and ED course. Patient mcp has correct armband on for positive identification. Placed in gown. Bed in low position. Call light in reach. Adult w/ patient. 09:55 Inserted saline lock: 20 gauge in left antecubital area and blood collected. The [facility] patient tolerated the procedure well. Missed attempts: 20 gauge X 1 in right antecubital area, Bleeding controlled, band aid applied, catheter tip intact. Labs drawn. (by ED staff). Sent per order to lab. 09:56 Pt greeted and oriented to ED. Patient advised of names of staff involved in care, [facility] location of call tee, wait times and NPO status. Patient has correct armband on for positive identification. Placed in gown. Bed in low position. Call light in reach. Side rails up X 1. Adult w/ patient. Door closed. 09:58 [facility] Payment Agreement was scanned into [employer] and attached to record. lg 10:14 Patient moved to Ultrasound br3 10:46 Patient visited by Orin Sharp PA-C. ef1 10:50 Patient moved to I5 / jam1 11:34 Patient visited by Catrachita Talbert RN. mcp 11:44 CT ABD & PELVIS: No Contrast Returned. EDMS 11:44 Gallbladder US Returned. EDMS 12:15 Patient visited by Orin Sharp PA-C. ef1 12:16 Patient visited by Roxanne Mcmahon PCA. jam1 12:18 [facility] is Referral Physician. ef1 12:27 David Carver MD is Referral Physician. ef1 12:30 No apparent distress. kpj 12:30 The patient / caregiver is instructed regarding the plan of care and ED course. kpj 12:30 Discontinued IV lock intact, bleeding controlled, pressure dressing applied, No kpj redness/swelling at site. No procedures done that require assistance. 13:28 CT ABD & PELVIS: No Contrast Returned. EDMS 13:28 Gallbladder US Returned. EDMS 15:14 T-Sheet-- Draft Copy was scanned into [employer] and attached to record. gb Administered Medications: 10:00 Drug: NS 0.9% 1000 ml [sodium chloride 0.9 % intravenous solution] Route: IV; Rate: kpj bolus; Site: left antecubital; 12:30 Follow up: IV Status: Completed infusion; Infusion discontinued kpj 10:00 Drug: Ondansetron 4 mg [ondansetron HCl 2 mg/mL intravenous solution (2 mL)] Route: kpj IVP; Site: left antecubital; 10:02 Drug: ketorolac 30 mg [ketorolac 30 mg/mL (1 mL) injection solution (1 mL)] Route: IVP; kpj Site: left antecubital; 10:30 Follow up: Pain 3/10 Adult; Response: Pain is decreased [facility] 10:30 Follow up: Response: Pain is decreased kpj Point of Care Testing: Urine : 09:52 hCG Reading: Negative; jam1 Ranges: Order Results: Lab Order: Amylase; SPEC'M 09/22/16 09:50 Test: AMYLASE; Value: 47; Range: 25-115; Units: U/L; Status: F Lab Order: Basic Metabolic Profile; SPEC'M 09/22/16 09:50 Test: GLUCOSE, FASTING; Value: 84; Range: 70-105; Units: MG/DL; Status: F Test: BLOOD UREA NITROGEN; Value: 11; Range: 7-18; Units: MG/DL; Status: F Test: CREATININE FOR GFR; Value: 0.72; Range: 0.55-1.02; Units: MG/DL; Status: F Test: GLOMERULAR FILTRATION RATE; Value: > 60.0; Range: >58; Status: F Test: SODIUM LEVEL; Value: 139; Range: 136-145; Units: MEQ/L; Status: F Test: POTASSIUM SERUM; Value: 3.9; Range: 3.5-5.1; Units: MEQ/L; Status: F Test: CHLORIDE LEVEL; Value: 105; Range: 98-107; Units: MEQ/L; Status: F Test: CARBON DIOXIDE LEVEL; Value: 29; Range: 21-32; Units: MEQ/L; Status: F Test: ANION GAP; Value: 5; Range: 8-16; Abnormal: Below low normal; Units: MEQ/L; Status: F Test: CALCIUM LEVEL; Value: 9.3; Range: 8.5-10.1; Units: MG/DL; Status: F Test Note: ; Units are mL/min/1.73 m2 Chronic Kidney Disease Staging per NKF: Stage I & II GFR >=60 Normal to Mildly Decreased Stage III GFR 30-59 Moderately Decreased Stage IV GFR 15-29 Severely Decreased Stage V GFR <15 Very Little GFR Left ESRD GFR <15 on GROCERY SPECIALIST Lab Order: CBC with Diff; SPEC'M 09/22/16 09:50 Test: WHITE BLOOD COUNT; Value: 15.7; Range: 4.0-10.0; Abnormal: Above high normal; Units: K/mm3; Status: F Test: RED BLOOD COUNT; Value: 4.82; Range: 4.00-5.40; Units: M/mm3; Status: F Test: HEMOGLOBIN; Value: 15.6; Range: 12.0-16.0; Units: g/dl; Status: F Test: HEMATOCRIT; Value: 47.1; Range: 36.0-47.0; Abnormal: Above high normal; Units: %; Status: F Test: MEAN CORPUSCULAR VOLUME; Value: 97.7; Range: 80.0-96.0; Abnormal: Above high normal; Units: fl; Status: F Test: MEAN CORPUSCULAR HEMOGLOBIN; Value: 32.3; Range: 27.0-33.0; Units: pg; Status: F Test: MEAN CORPUSCULAR HGB CONC; Value: 33.1; Range: 32.0-36.5; Units: g/dl; Status: F Test: RED CELL DISTRIBUTION WIDTH; Value: 12.8; Range: 11.5-14.5; Units: %; Status: F Test: PLATELET COUNT, AUTOMATED; Value: 280; Range: 150-450; Units: k/mm3; Status: F Test: NEUTROPHILS %; Value: 77.2; Range: 36.0-66.0; Abnormal: Above high normal; Units: %; Status: F Test: LYMPH %; Value: 15.1; Range: 24.0-44.0; Abnormal: Below low normal; Units: %; Status: F Test: MONO %; Value: 3.9; Range: 0.0-5.0; Units: %; Status: F Test: EOS %; Value: 1.3; Range: 0.0-3.0; Units: %; Status: F Test: BASO %; Value: 1.4; Range: 0.0-1.0; Abnormal: Above high normal; Units: %; Status: F Test: LARGE UNSTAINED CELL %; Value: 1.1; Range: 0.0-4.0; Units: %; Status: F Test: NEUTROPHILS #; Value: 12.1; Range: 1.8-7.7; Abnormal: Above high normal; Units: K/mm3; Status: F Test: LYMPH #; Value: 2.5; Range: 1.5-4.5; Units: K/mm3; Status: F Test: MONO #; Value: 0.6; Range: 0.0-0.8; Units: K/mm3; Status: F Test: EOS #; Value: 0.2; Range: 0.0-0.50; Units: K/mm3; Status: F Test: BASO #; Value: 0.2; Range: 0.0-0.2; Units: K/mm3; Status: F Test: LARGE UNSTAINED CELL #; Value: 0.2; Range: 0.0-0.4; Units: K/mm3; Status: F Lab Order: Lipase; SPEC'M 09/22/16 09:50 Test: LIPASE; Value: 133; Range: 73-393; Units: U/L; Status: F Lab Order: Liver Profile; SPEC' 09/22/16 09:50 Test: AST/SGOT; Value: 20; Range: 15-37; Units: U/L; Status: F Test: ALT/SGPT; Value: 29; Range: 12-78; Units: U/L; Status: F Test: ALKALINE PHOSPHATASE; Value: 74; Range: 45-117; Units: U/L; Status: F Test: BILIRUBIN,TOTAL; Value: 0.5; Range: 0.2-1.0; Units: MG/DL; Status: F Test: BILIRUBIN,DIRECT; Value: 0.1; Range: 0.0-0.2; Units: MG/DL; Status: F Test: TOTAL PROTEIN; Value: 7.2; Range: 6.4-8.2; Units: GM/DL; Status: F Test: ALBUMIN; Value: 4.2; Range: 3.2-5.2; Units: GM/DL; Status: F Test: ALBUMIN/GLOBULIN RATIO; Value: 1.40; Range: 1.00-1.93; Status: F Lab Order: Urinalysis; [facility] 09/22/16 09:47 Test: APPEARANCE, URINE; Value: CLEAR; Range: CLEAR; Status: F Test: COLOR, URINE; Value: STRAW; Range: YELLOW; Status: F Test: PH,URINE; Value: 7.0; Range: 5.0-9.0; Units: UNITS; Status: F Test: SPECIFIC GRAVITY URINE AUTO; Value: 1.005; Range: 1.002-1.035; Status: F Test: PROTEIN, URINE AUTO; Value: NEGATIVE; Range: NEGATIVE; Units: mg/dL; Status: F Test: GLUCOSE, URINE (UA) AUTO; Value: NEGATIVE; Range: NEGATIVE; Units: mg/dL; Status: F Test: KETONE, URINE AUTO; Value: NEGATIVE; Range: NEGATIVE; Units: mg/dL; Status: F Test: UROBILINOGEN, URINE AUTO; Value: 0.2; Range: 0.0-2.0; Units: mg/dL; Status: F Test: BILIRUBIN, URINE AUTO; Value: NEGATIVE; Range: NEGATIVE; Status: F Test: NITRITE, URINE AUTO; Value: NEGATIVE; Range: NEGATIVE; Status: F Test: LEUKOCYTE ESTERASE, URINE AUTO; Value: NEGATIVE; Range: NEGATIVE; Status: F Test: BLOOD, URINE BLOOD; Value: NEGATIVE; Range: NEGATIVE; Status: F Test: WBC, URINE AUTO; Value: 0; Range: 0-3; Units: /HPF; Status: F Test: RBC, URINE AUTO; Value: 2; Range: 0-3; Units: /HPF; Status: F Test: BACTERIA, URINE AUTO; Value: NEGATIVE; Range: NEGATIVE; Status: F Test: SQUAMOUS EPITHELIAL CELL UR AU; Value: 0; Range: 0-6; Units: /HPF; Status: F Test: MUCUS, URINE; Value: SMALL; Range: NEGATIVE; Status: F Test: HYALINE CAST, URINE AUTO; Value: 0; Range: 0-1; Units: /LPF; Status: F Lab Order: Urine Culture; SPEC'M 09/22/16 09:47 Test: URINE CULTURE; Value: <EXTERNAL COMMENT eCWMed> FULL REPORT IN LAB NOTES (eCW and Medent).; Status: F Test: URINE CULTURE; Value: URINE CULTURE RESULT NO GROWTH; Status: F Radiology Order: CT ABD & PELVIS: No Contrast Test: CT ABD & PELVIS: No Contrast REASON FOR EXAMINATION: Abdomen Pain; CT study of the abdomen and pelvis without IV or oral contrast:; ; History: Abdominal pain right-sided and umbilical.; ; Findings: Preliminary digital slinger sequins radiograph demonstrates bilateral tubal; ligation clamps in the pelvis and a normal bowel gas pattern. The lung bases are; clear.; ; There is an accessory splenule in the left upper quadrant. The liver and spleen; are normal in size and otherwise normal and homogeneous in texture. The; gallbladder is unremarkable. No pancreatic lesion is seen. No adrenal mass is; observed on either side. There is no evidence of hydronephrosis, intrarenal; calculus or mass lesion. Normal caliber aorta is seen. No retroperitoneal mass; or adenopathy is observed. There is scattered pancolonic diverticulosis without; CT evidence of diverticulitis. A normal appendix is seen at the tip of the; cecum. Uterus is mildly enlarged measuring 10.4 x 5.8 x 7.3 cm. No free fluid; is seen. No adnexal mass or significant cyst is seen. No abdominal wall defect; is observed. No evidence of free intraperitoneal air. No bony destructive; lesion is seen.; ; Impression:; ; Pancolonic diverticulosis without CT evidence of diverticulitis. Normal appendix; seen. No acute intra-abdominal abnormality. Mildly enlarged uterus.; ; ; Signed by; Monroe Grady MD 09/22/2016 12:33 P; Radiology Order: Gallbladder US Test: Gallbladder US REASON FOR EXAMINATION: Biliary Colic; RIGHT UPPER QUADRANT SONOGRAPHY:; ; HISTORY: Biliary colic.; ; COMPARISON STUDY: CT abdomen and pelvis from this date.; ; FINDINGS: Scanning through the right upper quadrant of the abdomen demonstrates a; normal sized, thin-walled gallbladder without evidence of stone or polyp. The; gallbladder appears partially contracted. The patient relates having eaten this; a.m. Common bile duct is normal measuring 0.4 cm in greatest diameter. There is; a 0.7 cm hyperechoic nodule in the left lobe consistent with a benign hemangioma.; No other focal liver lesion is seen. Liver size is normal. No pancreatic; abnormality is observed. No right renal abnormality is seen. There is no; evidence of ascites. The right kidney measures 11.8 x 6.2 x 4.7 cm.; ; IMPRESSION: Partially contracted appearing gallbladder, 0.7 cm benign hemangioma; in the left lobe, otherwise negative right upper quadrant sonography.; ; ; Signed by; Monroe Grady MD 09/22/2016 12:33 P; Outcome: 12:18 Discharge ordered by Provider. ef1 12:30 Discharge Assessment: Patient awake, alert and oriented x 3. No cognitive and/or [facility] functional deficits noted. Patient verbalized understanding of disposition instructions. patient administered narcotics -. 12:30 The following High Risk Discharge criteria are identified: None. Discharged to home [facility] ambulatory, with significant other. Condition: stable. Discharge instructions given to patient, Instructed on discharge instructions, follow up and referral plans. medication usage, no driving heavy equipment, diet, no drinking with medication, Demonstrated understanding of instructions, medications, Pt was receptive of discharge instructions/ teaching. Prescriptions given X 4, Work note provided to patient. CT Study completed. Property sent home with patient. 12:54 Patient left the ED. [facility] Signatures: Dispatcher MedHost EDMS Daxa Barbour RN RN kpj Michelson, Staci, RN RN srm Peters, Mary, RN RN mcp Murphy, Jane, DOMINGO RUBBER GOODS CUTTER FINISHER jam1 Lisa Moreno, Reg Reg gb Ganter, LoriLee, Reg Reg lg Feola, Orin, YING HE ef1 Dorcas Briseno br3 Minerva Horton jp5 Chart Complete MTDD
--- NOTE | 2016-09-24 13:55 | EDDOCDS ---
Physician Documentation [facility] Name: Sheyla Amin Age: 46 yrs Sex: Female : 1970 Arrival Date: 09/22/2016 Time: 08:57 Bed I5 / M5 Private MD: Disposition: 09/22/16 12:18 Discharged to Home/Self Care. Impression: Generalized abdominal pain, Nausea, Diverticulosis of large intestine without perforation or abscess without bleeding, Hemangioma - 17cm Benign Hemangioma in Left Lobe of Liver found on U/S of Gallbladder. - Condition is Stable. - Discharge Instructions: Abdominal Pain, Adult, Nausea, Adult, Diverticulosis. - Prescriptions for Bentyl 20 mg Oral Tablet - take 1 tablet by ORAL route every 6 hours As needed; 20 tablet. Cipro 500 mg Oral Tablet - take 1 tablet by ORAL route every 12 hours; 14 tablet. Percocet 5- 325 mg Oral Tablet - take 1 tablet by ORAL route every 6 hours As needed MDD: 4 tabs; 10 tablet. Reglan 10 mg Oral Tablet - take 1 tablet by ORAL route every 6 hours take 30 minutes before meals and at bedtime; 20 tablet. - Medication Reconciliation, Local Pharmacy Hours, Referral List Call for Appointment, Work Release Form - 2 day form. - [facility]: [facility] ; When: 1 - 2 days; Reason: Recheck today's complaints, Continuance of care. Follow up: Emergency Department; Reason: Worsening of conditions. Follow up: David Carver MD; When: Call to arrange an appointment; Reason: Further diagnostic work-up, Recheck today's complaints, Continuance of care. - Problem is new. - Symptoms have improved. Historical: - Allergies: SUCCINYLCHOLINE; - Home Meds: 1. none - PMHx: Seasonal Allergies; - PSHx: ; - Social history: Smoking status: Patient uses tobacco products, current every day smoker. No barriers to communication noted, The patient speaks fluent Citizen Of [place], Speaks appropriately for age. - Family history: Not pertinent. - : The pt / caregiver states he / she is not on anticoagulants. Home medication list is obtained from the patient. - Exposure Risk Screening:: None identified. 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 6 in. (167.64 cm) (R); 10:30 Pain 3/10; mcp 10:31 jam1 10:42 BP 120 / 65; Pulse 90; Resp 20; Temp 97.9; Pulse Ox 99% ; Pain 2/10; jam1 12:21 BP 115 / 65; Pulse 76; Resp 20; Temp 97.0; Pulse Ox 99% ; Pain 0/10; jam1 09:01 Body Mass Index 21.63 (60.78 kg, 167.64 cm) srm 10:31 pt at ultrosound at this time could not do v/s jam1 MDM: 09:40 NS 0.9% 1000 ml IV at bolus once ordered. ef1 09:40 Ondansetron 4 mg IVP once ordered. ef1 09:40 IV Saline Lock ordered. ef1 09:40 Undress patient appropriately for examination ordered. ef1 09:40 UCG by Nursing ordered. ef1 09:40 ketorolac 30 mg IVP once ordered. ef1 09:41 CT ABD & PELVIS: No Contrast Ordered. EDMS 09:41 Amylase Ordered. EDMS 09:41 Basic Metabolic Profile Ordered. EDMS 09:41 CBC with Diff Ordered. EDMS 09:42 Lipase Ordered. EDMS 09:42 Liver Profile Ordered. EDMS 09:42 Urinalysis Ordered. EDMS 09:42 Urine Culture Ordered. EDMS 09:42 Gallbladder US Ordered. EDMS 09:42 Financial registration complete. lg 09:42 NOTHING BY MOUTH+DIET ordered. EDMS 09:58 [facility] Payment Agreement was scanned into [employer] and attached to record. lg 10:46 Basic Metabolic Profile Reviewed. ef1 10:46 CBC with Diff Reviewed. ef1 10:46 Amylase Reviewed. ef1 10:46 Lipase Reviewed. ef1 10:46 Liver Profile Reviewed. ef1 10:46 Urinalysis Reviewed. ef1 12:15 CT ABD & PELVIS: No Contrast Reviewed. ef1 12:15 Gallbladder US Reviewed. ef1 15:14 T-Sheet-- Draft Copy was scanned into [employer] and attached to record. gb Point of Care Testing: Urine : 09:52 hCG Reading: Negative; jam1 Ranges: Administered Medications: 10:00 Drug: NS 0.9% 1000 ml [sodium chloride 0.9 % intravenous solution] Route: IV; Rate: kpj bolus; Site: left antecubital; 12:30 Follow up: IV Status: Completed infusion; Infusion discontinued [facility] 10:00 Drug: Ondansetron 4 mg [ondansetron HCl 2 mg/mL intravenous solution (2 mL)] Route: kpj IVP; Site: left antecubital; 10:02 Drug: ketorolac 30 mg [ketorolac 30 mg/mL (1 mL) injection solution (1 mL)] Route: IVP; [facility] Site: left antecubital; 10:30 Follow up: Pain 10/30 Adult; Response: Pain is decreased [facility] 10:30 Follow up: Response: Pain is decreased [facility] Signatures: Dispatcher [employer] EDDaxa Kohli RN RN [facility] Lori Gonzalez RN RN [facility] Lisa Moreno, Reg Reg gb Nelia Cadena, Reg Reg lg Orin Sharp, PA-C PA-Elizabeth ef1 Catrachita Talbert RN [facility] The chart was reviewed and I authenticate all verbal orders and agree with the evaluation and treatment provided.Attachments: 09:58 [facility] Payment Agreement lg 15:14 T-Sheet-- Draft Copy Chart Complete MTDD
== END 2016-09-22 12:54 | disposition home or self-care (01) ==
LOC: M ED 08:57
DX: R10.84 Generalized abdominal pain (principal); R11.0 Nausea; K57.30 Diverticulosis of large intestine without perforation or abscess without bleeding; D18.03 Hemangioma of intra-abdominal structures; J30.9 Allergic rhinitis, unspecified; F17.210 Nicotine dependence, cigarettes, uncomplicated; Z88.4 Allergy status to anesthetic agent
CPT/HCPCS: 36415; 74176; 76705; 80048; 80076; 81001; 81025; 82150; 83690; 85025; 87086; 96361; 96374; 96375; 99284; J1885; J2405

== ENCOUNTER → 2016-10-01 | Outpatient (CLI) | payer OTHER ==
--- NOTE | 2016-10-01 10:59 | REP ---
Hepatobiliary scan and gallbladder ejection fraction: History: However quadrant abdominal pain. Technique: 6.4 mCi of technetium-99m mebrofenin was injected and sequential anterior images are acquired. 65 minutes after the mebrofenin injection, the patient consumed 8 ounces Ensure and an additional 60 minutes of imaging was acquired. Regions of interest are plotted around the gallbladder. Findings: The initial hepatocellular parenchymal uptake phase is normal and homogeneous. Intra- and extra-hepatic bile ducts and duodenum are labeled by the 10 -minute image. The gallbladder is first labeled on the 10 -minute image. There is normal washout from the liver parenchyma into the gallbladder and small intestine on subsequent images. The gallbladder ejection fraction is normal at 35 %. Values greater than 35 % are considered normal with this technique. Impression: Normal hepatobiliary scan and borderline gallbladder ejection fraction. Signed by Monroe Grady MD 10/01/2016 10:50 A
== END ==
LOC: M RAD 07:34
PROVIDERS: ATTEND Surgery
DX: R10.11 Right upper quadrant pain (principal)

== ENCOUNTER 2016-10-13 22:52 | Emergency (ER) | payer OTHER ==
[2016-10-13] MEDS ORDERED: ONDANSETRON 4 MG ORAL DISINTEGRATING TAB (S0181) As Ordered ONE (23:41)
--- NOTE | 2016-10-14 00:16 | EDDOCDS ---
[facility]ation [facility] Name: Sheyla Amin Age: 46 yrs Sex: Female : 1970 Arrival Date: 10/13/2016 Time: 22:52 Bed Triage 1 Private MD: Amara Wheatley FNP Disposition: 10/14/16 00:04 Discharged to Home/Self Care. Impression: Vomiting, Diarrhea, unspecified. - Condition is Stable. - Discharge Instructions: Food Choices to Help Relieve Diarrhea, Adult, Nausea and Vomiting. - Prescriptions for ZOFRAN ODT 4 mg - dissolve 1 tablet by ORAL route 4 times per day As needed do not chew, do not swallow whole; 10 tablet. - Medication Reconciliation, Work Release Form - 3 day, Local Pharmacy Hours form. - Follow up: Amara Wheatley; When: Call to arrange an appointment; Reason: Recheck today's complaints, Continuance of care. - Problem is new. - Symptoms have improved. Historical: - Allergies: SUCCINYLCHOLINE; - Home Meds: 1. none - PMHx: Seasonal Allergies; - PSHx: ; Tubal ligation; - Social history: Smoking status: Patient uses tobacco products, heavy tobacco smoker. No barriers to communication noted, The patient speaks fluent Argentine, Speaks appropriately for age. - Family history: Not pertinent. - : The pt / caregiver states he / she is not on anticoagulants. Home medication list is obtained from the patient. - Exposure Risk Screening:: None identified. 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 6 in. (167.64 cm) (R); Pain 7/10; 10/14 00:11 BP 117 / 62; Pulse 84; Resp 18; Temp 98; Pulse Ox 97% ; ms18 10/13 22:53 Body Mass Index 5.81 (16.33 kg, 167.64 cm) gr2 MDM: 10/13 23:39 Ondansetron ODT Oral Disintegrating Tablet 4 mg PO once ordered. mo1 23:39 Fluid Challenge ordered. mo1 Administered Medications: 23:42 Drug: Ondansetron ODT 4 mg [ondansetron 4 mg disintegrating tablet (1 tabs)] Route: PO; af2 23:59 Follow up: Response: Nausea is decreased ms18 Signatures: Vicente Pearl RN RN mlb1 Vicente Sosa PA PA mo1 Elly Cisneros RN RN ms18 Emelia Rankin RN af2 MTDD
--- NOTE | 2016-10-14 00:16 | EDDOCDS ---
Nurse's Notes [facility] Name: Sheyla Amin Age: 46 yrs Sex: Female : 1970 Arrival Date: 10/13/2016 Time: 22:52 Bed Triage 1 Private MD: Amara Wheatley FNP Diagnosis: Vomiting;Diarrhea, unspecified Presentation: 10/13 22:56 Presenting complaint: Patient states: Upper abdominal pain with N/V/D began today. Risk mlb1 factors: the patient reports no vaginal bleeding. Adult Sepsis Screening: The patient does not have new or worsening altered mentation. Patient's respiratory rate is less than 22. Systolic blood pressure is greater than 100. Patient has a qSOFA score of 0- Negative Sepsis Screen. Suicide/Homicide risk assessment- the patient denies having any suicidal and/or homicidal ideations and does not present with any other emotional, behavioral or mental health complaints. Status: Patient is not a fiscal services director or dependent. Transition of care: patient was not received from another setting of care. 22:56 Acuity: KAYLIN Level 3 mlb1 22:56 Method Of Arrival: Walkin/Carried/Asstd mlb1 Triage Assessment: 22:57 General: Appears in no apparent distress, Behavior is appropriate for age, cooperative. mlb1 Pain: Location: right upper quadrant and left upper quadrant Pain currently is 7 out of 10 on a pain scale. Pt Declines HIV testing. GI: Reports diarrhea, nausea, vomiting. 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 none - PMHx: Seasonal Allergies; - PSHx: ; Tubal ligation; - Social history: Smoking status: Patient uses tobacco products, heavy tobacco smoker. No barriers to communication noted, The patient speaks fluent [place], Speaks appropriately for age. - Family history: Not pertinent. - : The pt / caregiver states he / she is not on anticoagulants. Home medication list is obtained from the patient. - Exposure Risk Screening:: None identified. Screenin/22 00:11 Screening information is obtained from the patient. Fall risk: No risks identified. ms18 Assistance ADL's: requires no assistance with activities of daily living. Abuse/DV Screen: The patient / caregiver reports he/she is: not in a situation that causes fear, pain or injury. Nutritional screening: No deficits noted. Advance Directives: There is no living will. home support is adequate. Assessment: 00:11 General: Appears in no apparent distress, comfortable, Behavior is appropriate for age, ms18 cooperative, quiet. Pain: Location: left upper quadrant and right upper quadrant. Neurological: No deficits noted. Respiratory: Airway is patent Respiratory effort is even, unlabored, Respiratory pattern is regular, symmetrical. GI: Abdomen is flat, non- distended Bowel sounds present X 4 quads. Abd is soft X 4 quads Reports diarrhea, nausea, vomiting. Derm: Skin is pink, warm & dry. Vital Signs: 10/13 22:53 BP 128 / 76; Pulse 91; Resp 18 S; Temp 98.4(O); Pulse Ox 97% on R/A; Weight 16.33 kg gr2 (R); Height 5 ft. 6 in. (167.64 cm) (R); Pain 7/10; 10/14 00:11 BP 117 / 62; Pulse 84; Resp 18; Temp 98; Pulse Ox 97% ; ms18 02 22:53 Body Mass Index 5.81 (16.33 kg, 167.64 cm) gr2 Vitals: 10/13 22:53 Log In Time: October 13, 2016 at 22:53. gr2 ED Course: 22:53 Patient visited by Daya Briseno. gr2 22:53 Amara Wheatley is Private Physician. gr2 22:53 Patient moved to Waiting gr2 22:55 Patient visited by Daya Briseno. gr2 22:55 Patient moved to Pre RCE gr2 22:56 Patient visited by Vicente Pearl RN. mlb1 22:57 Triage Initiated mlb1 22:58 Patient visited by Vicente Pearl RN. mlb1 23:17 Vicente Sosa PA is PHCP. mo1 23:17 Patient moved to Triage 1 af2 23:19 Vicente Sosa PA is PHCP. mo1 23:19 Stoney Minaya MD is Attending Physician. mo1 23:30 Patient visited by Vicente Soas PA. mo1 10/14 00:04 Amara Wheatley is Referral Physician. mo1 00:11 Patient visited by Elly Cisneros RN. ms18 00:11 The patient / caregiver is instructed regarding the plan of care and ED course. Patient ms18 has correct armband on for positive identification. Property sent home with patient. :Personal belongings accompany Pt. 00:11 No IV's were initiated during this patient's visit. No procedures done that require ms18 assistance. Administered Medications: 10/13 23:42 Drug: Ondansetron ODT 4 mg [ondansetron 4 mg disintegrating tablet (1 tabs)] Route: PO; af2 23:59 Follow up: Response: Nausea is decreased ms18 Order Results: There are currently no results for this order. Outcome: 10/14 00:04 Discharge ordered by Provider. mo1 00:11 Discharge Assessment: Patient awake, alert and oriented x 3. No cognitive and/or ms18 functional deficits noted. Patient verbalized understanding of disposition instructions. patient administered narcotics - no. The following High Risk Discharge criteria are identified: None. Discharged to home ambulatory. Condition: good Condition: stable Condition: improved. Discharge instructions given to patient, Instructed on discharge instructions, follow up and referral plans. medication usage, Demonstrated understanding of instructions, medications, Pt was receptive of discharge instructions/ teaching. Prescriptions given X 1. No special radiology studies were completed. 00:15 Patient left the ED. ms18 Signatures: Vicente Pearl RN RN mlb1 Daya Briseno gr2 Vicente Sosa PA PA mo1 Elly Cisneros,BLAIRE RN ms18 Emelia Rankin RN RN af2 MTDD
--- NOTE | 2016-10-16 01:16 | EDDOCDS ---
Physician Documentation [facility] Name: Sheyla Amin Age: 46 yrs Sex: Female : 1970 Arrival Date: 10/13/2016 Time: 22:52 Bed Triage 1 Private MD: Amara Wheatley FNP Disposition: 10/14/16 00:04 Discharged to Home/Self Care. Impression: Vomiting, Diarrhea, unspecified. - Condition is Stable. - Discharge Instructions: Food Choices to Help Relieve Diarrhea, Adult, Nausea and Vomiting. - Prescriptions for ZOFRAN ODT 4 mg - dissolve 1 tablet by ORAL route 4 times per day As needed do not chew, do not swallow whole; 10 tablet. - Medication Reconciliation, Work Release Form - 3 day, Local Pharmacy Hours form. - Follow up: Amara Wheatley; When: Call to arrange an appointment; Reason: Recheck today's complaints, Continuance of care. - Problem is new. - Symptoms have improved. Historical: - Allergies: SUCCINYLCHOLINE; - Home Meds: 1. none - PMHx: Seasonal Allergies; - PSHx: ; Tubal ligation; - Social history: Smoking status: Patient uses tobacco products, heavy tobacco smoker. No barriers to communication noted, The patient speaks fluent Estonian, Speaks appropriately for age. - Family history: Not pertinent. - : The pt / caregiver states he / she is not on anticoagulants. Home medication list is obtained from the patient. - Exposure Risk Screening:: None identified. 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 6 in. (167.64 cm) (R); Pain 7/10; 10/14 00:11 BP 117 / 62; Pulse 84; Resp 18; Temp 98; Pulse Ox 97% ; ms18 10/13 22:53 Body Mass Index 5.81 (16.33 kg, 167.64 cm) gr2 MDM: 10/13 23:39 Ondansetron ODT Oral Disintegrating Tablet 4 mg PO once ordered. mo1 23:39 Fluid Challenge ordered. mo1 10/14 12:25 T-Sheet-- Draft Copy was scanned into [employer] and attached to record. gb Administered Medications: 10/13 23:42 Drug: Ondansetron ODT 4 mg [ondansetron 4 mg disintegrating tablet (1 tabs)] Route: PO; af2 23:59 Follow up: Response: Nausea is decreased ms18 Signatures: Lisa Moreno, Reg Reg gb Vicente Pearl RN RN mlb1 Vicente Sosa PA PA mo1 Elly Cisneros RN RN ms18 Emelia Rankin RN af2 The chart was reviewed and I authenticate all verbal orders and agree with the evaluation and treatment provided.Attachments: 10/14 12:25 T-Sheet-- Draft Copy gb Chart Complete MTDD
--- NOTE | 2016-10-16 01:16 | EDDOCDS ---
Physician Documentation [facility] Name: Sheyla Amin Age: 46 yrs Sex: Female : 1970 Arrival Date: 10/13/2016 Time: 22:52 Bed Triage 1 Private MD: Amara Wheatley FNP Disposition: 10/14/16 00:04 Discharged to Home/Self Care. Impression: Vomiting, Diarrhea, unspecified. - Condition is Stable. - Discharge Instructions: Food Choices to Help Relieve Diarrhea, Adult, Nausea and Vomiting. - Prescriptions for ZOFRAN ODT 4 mg - dissolve 1 tablet by ORAL route 4 times per day As needed do not chew, do not swallow whole; 10 tablet. - Medication Reconciliation, Work Release Form - 3 day, Local Pharmacy Hours form. - Follow up: Amara Wheatley; When: Call to arrange an appointment; Reason: Recheck today's complaints, Continuance of care. - Problem is new. - Symptoms have improved. Historical: - Allergies: SUCCINYLCHOLINE; - Home Meds: 1. none - PMHx: Seasonal Allergies; - PSHx: ; Tubal ligation; - Social history: Smoking status: Patient uses tobacco products, heavy tobacco smoker. No barriers to communication noted, The patient speaks fluent Liberian, Speaks appropriately for age. - Family history: Not pertinent. - : The pt / caregiver states he / she is not on anticoagulants. Home medication list is obtained from the patient. - Exposure Risk Screening:: None identified. 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 6 in. (167.64 cm) (R); Pain 7/10; 10/14 00:11 BP 117 / 62; Pulse 84; Resp 18; Temp 98; Pulse Ox 97% ; ms18 10/13 22:53 Body Mass Index 5.81 (16.33 kg, 167.64 cm) gr2 MDM: 10/13 23:39 Ondansetron ODT Oral Disintegrating Tablet 4 mg PO once ordered. mo1 23:39 Fluid Challenge ordered. mo1 10/14 12:25 T-Sheet-- Draft Copy was scanned into [employer] and attached to record. gb Administered Medications: 10/13 23:42 Drug: Ondansetron ODT 4 mg [ondansetron 4 mg disintegrating tablet (1 tabs)] Route: PO; af2 23:59 Follow up: Response: Nausea is decreased ms18 Signatures: Lisa Moreno, Reg Reg gb Vicente Pearl RN RN mlb1 Vicente Sosa PA PA mo1 Elly Cisneros RN RN ms18 Emelia Rankin RN af2 The chart was reviewed and I authenticate all verbal orders and agree with the evaluation and treatment provided.Attachments: 10/14 12:25 T-Sheet-- Draft Copy gb Chart Complete MTDD
--- NOTE | 2016-10-16 01:16 | EDDOCDS ---
Nurse's Notes [facility] Name: Sheyla Amin Age: 46 yrs Sex: Female : 1970 Arrival Date: 10/13/2016 Time: 22:52 Bed Triage 1 Private MD: Amara Wheatley FNP Diagnosis: Vomiting;Diarrhea, unspecified Presentation: 10/13 22:56 Presenting complaint: Patient states: Upper abdominal pain with N/V/D began today. Risk mlb1 factors: the patient reports no vaginal bleeding. Adult Sepsis Screening: The patient does not have new or worsening altered mentation. Patient's respiratory rate is less than 22. Systolic blood pressure is greater than 100. Patient has a qSOFA score of 0- Negative Sepsis Screen. Suicide/Homicide risk assessment- the patient denies having any suicidal and/or homicidal ideations and does not present with any other emotional, behavioral or mental health complaints. Status: Patient is not a manager support services or dependent. Transition of care: patient was not received from another setting of care. 22:56 Acuity: KAYLIN Level 3 mlb1 22:56 Method Of Arrival: Walkin/Carried/Asstd mlb1 Triage Assessment: 22:57 General: Appears in no apparent distress, Behavior is appropriate for age, cooperative. mlb1 Pain: Location: right upper quadrant and left upper quadrant Pain currently is 7 out of 10 on a pain scale. Pt Declines HIV testing. GI: Reports diarrhea, nausea, vomiting. 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 none - PMHx: Seasonal Allergies; - PSHx: ; Tubal ligation; - Social history: Smoking status: Patient uses tobacco products, heavy tobacco smoker. No barriers to communication noted, The patient speaks fluent Sri Lankan, Speaks appropriately for age. - Family history: Not pertinent. - : The pt / caregiver states he / she is not on anticoagulants. Home medication list is obtained from the patient. - Exposure Risk Screening:: None identified. Screenin/22 00:11 Screening information is obtained from the patient. Fall risk: No risks identified. ms18 Assistance ADL's: requires no assistance with activities of daily living. Abuse/DV Screen: The patient / caregiver reports he/she is: not in a situation that causes fear, pain or injury. Nutritional screening: No deficits noted. Advance Directives: There is no living will. home support is adequate. Assessment: 00:11 General: Appears in no apparent distress, comfortable, Behavior is appropriate for age, ms18 cooperative, quiet. Pain: Location: left upper quadrant and right upper quadrant. Neurological: No deficits noted. Respiratory: Airway is patent Respiratory effort is even, unlabored, Respiratory pattern is regular, symmetrical. GI: Abdomen is flat, non- distended Bowel sounds present X 4 quads. Abd is soft X 4 quads Reports diarrhea, nausea, vomiting. Derm: Skin is pink, warm & dry. Vital Signs: 10/13 22:53 BP 128 / 76; Pulse 91; Resp 18 S; Temp 98.4(O); Pulse Ox 97% on R/A; Weight 16.33 kg gr2 (R); Height 5 ft. 6 in. (167.64 cm) (R); Pain 7/10; 10/14 00:11 BP 117 / 62; Pulse 84; Resp 18; Temp 98; Pulse Ox 97% ; ms18 02 22:53 Body Mass Index 5.81 (16.33 kg, 167.64 cm) gr2 Vitals: 10/13 22:53 Log In Time: October 13, 2016 at 22:53. gr2 ED Course: 22:53 Patient visited by Daya Briseno. gr2 22:53 Amara Wheatley is Private Physician. gr2 22:53 Patient moved to Waiting gr2 22:55 Patient visited by Daya Briseno. gr2 22:55 Patient moved to Pre RCE gr2 22:56 Patient visited by Vicente Pearl RN. mlb1 22:57 Triage Initiated mlb1 22:58 Patient visited by Vicente Pearl RN. mlb1 23:17 Vicente Sosa PA is PHCP. mo1 23:17 Patient moved to Triage 1 af2 23:19 Vicente Sosa PA is PHCP. mo1 23:19 Stoney Minaya MD is Attending Physician. mo1 23:30 Patient visited by Vicente Sosa PA. mo1 10/14 00:04 Amara Wheatley is Referral Physician. mo1 00:11 Patient visited by Elly Cisneros RN. ms18 00:11 The patient / caregiver is instructed regarding the plan of care and ED course. Patient ms18 has correct armband on for positive identification. Property sent home with patient. :Personal belongings accompany Pt. 00:11 No IV's were initiated during this patient's visit. No procedures done that require ms18 assistance. 12:25 T-Sheet-- Draft Copy was scanned into [employer] and attached to record. gb Administered Medications: 10/13 23:42 Drug: Ondansetron ODT 4 mg [ondansetron 4 mg disintegrating tablet (1 tabs)] Route: PO; af2 23:59 Follow up: Response: Nausea is decreased ms18 Order Results: There are currently no results for this order. Outcome: 10/14 00:04 Discharge ordered by Provider. mo1 00:11 Discharge Assessment: Patient awake, alert and oriented x 3. No cognitive and/or ms18 functional deficits noted. Patient verbalized understanding of disposition instructions. patient administered narcotics - no. The following High Risk Discharge criteria are identified: None. Discharged to home ambulatory. Condition: good Condition: stable Condition: improved. Discharge instructions given to patient, Instructed on discharge instructions, follow up and referral plans. medication usage, Demonstrated understanding of instructions, medications, Pt was receptive of discharge instructions/ teaching. Prescriptions given X 1. No special radiology studies were completed. 00:15 Patient left the ED. ms18 Signatures: Lisa Moreno, Reg Reg gb Vicente Pearl, RN RN mlb1 Daya Briseno gr2 Vicente Sosa PA PA mo1 Elly Cisneros,BLAIRE RN ms18 Emelia Rankin RN RN af2 Chart Complete MTDD
== END 2016-10-14 00:15 | disposition home or self-care (01) ==
LOC: M ED 22:52
DX: R10.9 Unspecified abdominal pain (principal); R11.2 Nausea with vomiting, unspecified; R19.7 Diarrhea, unspecified; F17.210 Nicotine dependence, cigarettes, uncomplicated; Z88.8 Allergy status to other drugs, medicaments and biological substances

== ENCOUNTER → 2016-11-11 | Outpatient (CLI) | payer OTHER ==
[~2016-11-11] VITALS: Ht 165.1 cm; Wt 63.5 kg
[~2016-11-11] MED LIST: LIDOCAINE 2% INJ 100 MG/5 ML SDV (FOR ANES.) As Ordered ONE; OMEP20CA3 PO; PROPOFOL 200 MG/20 ML VIAL As Ordered ONE; TAGA200T3 PO; fentaNYL 100 MCG/2 ML INJECTION (J3010) As Ordered ONE
[2016-11-11] MEDS: NS 1,000 ML IV SCH (11:58)
--- NOTE | 2016-11-11 12:45 | ROOR ---
Patient Name: Sheyla Amin Procedure Date: 11/11/2016 12:15 PM Date of : 1970 Age: 46 Room: [facility] Gender: Female Note Status: Finalized Procedure: Upper GI endoscopy Indications: Suspected gastro-esophageal reflux disease Providers: DO Keon Garcia MD: MAKENZIE LOVE [facility], Admin. Requesting Provider: Medicines: Propofol per Anesthesia Complications: No immediate complications. Procedure: Pre-Anesthesia Assessment: - Prior to the procedure, a History and Physical was performed, and patient medications and allergies were reviewed. The patient is competent. The risks and benefits of the procedure and the sedation options and risks were discussed with the patient. All questions were answered and informed consent was obtained. Patient identification and proposed procedure were verified by the physician, the nurse, the anesthesiologist and the pharmacy technician in the endoscopy suite. Mental Status Examination: alert and oriented. Airway Examination: normal oropharyngeal airway and neck mobility. Respiratory Examination: clear to auscultation. CV Examination: normal. Prophylactic Antibiotics: The patient does not require prophylactic antibiotics. Prior Anticoagulants: The patient has taken no previous anticoagulant or antiplatelet agents. ASA Grade Assessment: II - A patient with mild systemic disease. After reviewing the risks and benefits, the patient was deemed in satisfactory condition to undergo the procedure. The anesthesia plan was to use monitored anesthesia care (MAC). Immediately prior to administration of medications, the patient was re-assessed for adequacy to receive sedatives. The heart rate, respiratory rate, oxygen saturations, blood pressure, adequacy of pulmonary ventilation, and response to care were monitored throughout the procedure. The physical status of the patient was re-assessed after the procedure. The Endoscope was introduced through the mouth, and advanced to the second part of duodenum. The upper GI endoscopy was accomplished without difficulty. The patient tolerated the procedure well. Findings: The Z-line was irregular. Biopsies were taken with a cold forceps for histology. Scattered moderate inflammation characterized by congestion (edema), erythema and friability was found in the entire examined stomach. Biopsies were taken with a cold forceps for Helicobacter pylori testing. Estimated blood loss was minimal. The exam was otherwise without abnormality. Impression: - Z-line irregular. Biopsied. - Gastritis. Biopsied. - The examination was otherwise normal. Recommendation: - Patient has a contact number available for emergencies. The signs and symptoms of potential delayed complications were discussed with the patient. Return to normal activities tomorrow. Written discharge instructions were provided to the patient. - Return to my office PRN. - Await pathology results. Jony Adan DO 11/11/2016 12:45:18 PM This report has been signed electronically. Number of Addenda: 0 Note Initiated On: 11/11/2016 12:15 PM Estimated Blood Loss: Estimated blood loss was minimal.
--- NOTE | 2016-11-11 12:48 | ROOR ---
Patient Name: Sheyla Amin Procedure Date: 11/11/2016 12:16 PM Date of : 1970 Age: 46 Room: [facility] Gender: Female Note Status: Finalized Procedure: Colonoscopy Indications: Generalized abdominal pain Providers: DO Keon Garcia MD: MAKENZIE LOVE T [facility], Admin. Requesting Provider: Medicines: Propofol per Anesthesia Complications: No immediate complications. Procedure: Pre-Anesthesia Assessment: - Prior to the procedure, a History and Physical was performed, and patient medications and allergies were reviewed. The patient is competent. The risks and benefits of the procedure and the sedation options and risks were discussed with the patient. All questions were answered and informed consent was obtained. Patient identification and proposed procedure were verified by the physician, the nurse, the anesthesiologist and the systems protection technician in the endoscopy suite. Mental Status Examination: alert and oriented. Airway Examination: normal oropharyngeal airway and neck mobility. Respiratory Examination: clear to auscultation. CV Examination: normal. Prophylactic Antibiotics: The patient does not require prophylactic antibiotics. Prior Anticoagulants: The patient has taken no previous anticoagulant or antiplatelet agents. ASA Grade Assessment: II - A patient with mild systemic disease. After reviewing the risks and benefits, the patient was deemed in satisfactory condition to undergo the procedure. The anesthesia plan was to use monitored anesthesia care (MAC). Immediately prior to administration of medications, the patient was re-assessed for adequacy to receive sedatives. The heart rate, respiratory rate, oxygen saturations, blood pressure, adequacy of pulmonary ventilation, and response to care were monitored throughout the procedure. The physical status of the patient was re-assessed after the procedure. The Colonoscope was introduced through the anus and advanced to the cecum, identified by the appendiceal orifice, ileocecal valve and palpation. The colonoscopy was performed without difficulty. The patient tolerated the procedure well. Findings: Multiple small-mouthed diverticula were found in the entire colon. A less than 5 mm polyp was found in the sigmoid colon. The polyp was semi-pedunculated. The polyp was removed with a cold biopsy forceps. Resection and retrieval were complete. Estimated blood loss was minimal. The exam was otherwise without abnormality on direct and retroflexion views. Impression: - Diverticulosis in the entire examined colon. - One less than 5 mm polyp in the sigmoid colon, removed with a cold biopsy forceps. Resected and retrieved. - The examination was otherwise normal on direct and retroflexion views. Recommendation: - Patient has a contact number available for emergencies. The signs and symptoms of potential delayed complications were discussed with the patient. Return to normal activities tomorrow. Written discharge instructions were provided to the patient. - Await pathology results. - Repeat colonoscopy at age 51 for screening purposes. Jony Adan DO 11/11/2016 12:48:00 PM This report has been signed electronically. Number of Addenda: 0 Note Initiated On: 11/11/2016 12:16 PM Estimated Blood Loss: Estimated blood loss was minimal.
[2016-11-11 13:18] VITALS: BP 118/71
== END | disposition home or self-care (01) ==
LOC: M OPP 10:22
PROVIDERS: ATTEND Surgery
DX: R10.84 Generalized abdominal pain (principal); D12.5 Benign neoplasm of sigmoid colon; K57.30 Diverticulosis of large intestine without perforation or abscess without bleeding; K21.9 Gastro-esophageal reflux disease without esophagitis; K22.8 Other specified diseases of esophagus; K29.70 Gastritis, unspecified, without bleeding; R12 Heartburn; F17.210 Nicotine dependence, cigarettes, uncomplicated; Z91.030 Bee allergy status; Z91.018 Allergy to other foods; Z88.8 Allergy status to other drugs, medicaments and biological substances; Z79.899 Other long term (current) drug therapy; Z80.6 Family history of leukemia
CPT/HCPCS: 43239; 45380; 88305; 99156; 99157; J3010

== ENCOUNTER → 2017-05-07 | Outpatient (REF) | payer OTHER, SELFPAY ==
[~2017-05-07] MED LIST changes: +BACT800T5 PO; +KETO10TAB PO; -LIDOCAINE 2% INJ 100 MG/5 ML SDV (FOR ANES.) As Ordered ONE; -PROPOFOL 200 MG/20 ML VIAL As Ordered ONE; +VITA1TAB27 PO; -fentaNYL 100 MCG/2 ML INJECTION (J3010) As Ordered ONE
[2017-05-07 15:40] LABS: BASO % 0.5 % (0.0-1.0); EOS # 0.3 K/mm3 (0.0-0.50); LARGE UNSTAINED CELL # 0.2 K/mm3 (0.0-0.4); LYMPH # 2.7 K/mm3 (1.5-4.5); LYMPH % 30.3 % (24.0-44.0); MEAN CORPUSCULAR HEMOGLOBIN 34.8 pg (27.0-33.0); MEAN CORPUSCULAR HGB CONC 34.1 g/dl (32.0-36.5); MEAN CORPUSCULAR VOLUME 101.9 fl (80.0-96.0); MONO # 0.6 K/mm3 (0.0-0.8); MONO % 6.7 % (0.0-5.0); NEUTROPHILS # 5.1 K/mm3 (1.8-7.7); NEUTROPHILS % 57.5 % (36.0-66.0); PLATELET COUNT, AUTOMATED 291 k/mm3 (150-450); WHITE BLOOD COUNT 8.8 K/mm3 (4.0-10.0)
[2017-05-07 15:47] LABS: ALBUMIN 3.8 GM/DL (3.2-5.2); ALBUMIN/GLOBULIN RATIO 1.46 (1.00-1.93); ALKALINE PHOSPHATASE 58 U/L (45-117); ALT/SGPT 30 U/L (12-78); ANION GAP 10 MEQ/L (8-16); AST/SGOT 18 U/L (15-37); BILIRUBIN,TOTAL 0.4 MG/DL (0.2-1.0); BLOOD UREA NITROGEN 12 MG/DL (7-18); CALCIUM LEVEL 9.1 MG/DL (8.5-10.1); CARBON DIOXIDE LEVEL 26 MEQ/L (21-32); CHLORIDE LEVEL 106 MEQ/L (98-107); CHOLESTEROL LEVEL 151 MG/DL (<200); CREATININE FOR GFR 0.62 MG/DL (0.55-1.02); GLOMERULAR FILTRATION RATE > 60.0 (>58); GLUCOSE, FASTING 81 MG/DL (70-105); SODIUM LEVEL 142 MEQ/L (136-145); TOTAL PROTEIN 6.4 GM/DL (6.4-8.2); TRIGLYCERIDES LEVEL 81 MG/DL (<150)
== END ==
LOC: M SFHCSACK 07:47
PROVIDERS: ATTEND Physician Assistant
DX: L70.9 Acne, unspecified (principal); Z13.220 Encounter for screening for lipoid disorders; Z13.21 Encounter for screening for nutritional disorder

== ENCOUNTER 2017-07-03 22:59 | Emergency (ER) | payer OTHER, SELFPAY ==
[~2017-07-03] VITALS: Ht 167.6 cm; Wt 64.0 kg
[~2017-07-03 22:59] MED LIST changes: -BACT800T5 PO; -KETO10TAB PO; -VITA1TAB27 PO
[2017-07-03] MEDS ORDERED: BACT800T5 PO (23:05)
[2017-07-03] MEDS ORDERED: VITA1TAB27 PO (23:05)
[2017-07-03] MEDS ORDERED: NS 1,000 ML IV ONE (23:30)
[2017-07-03] MEDS ORDERED: KETOROLAC 30 MG/ML VIAL (J1885) IV ONE (23:30)
[2017-07-03] MEDS ORDERED: ONDANSETRON 4MG/2ML VIAL (J2405) IV ONE (23:30)
[2017-07-03] MEDS ORDERED: MORPHINE 2 MG/ML 1ML SYRINGE IV PRN (23:30)
[2017-07-03] MEDS ORDERED: PANTOPRAZOLE 40MG INJ (PROTONIX) (C9113) IV ONE (23:30)
[2017-07-03 23:33] LABS: BASO # 0.1 10^3/uL (0.0-0.2); BASO % 0.6 % (0.0-1.0); EOS # 0.3 10^3/uL (0.0-0.50); EOS % 3.2 % (0.0-3.0); IMMATURE GRANULOCYTE % 0.2 % (0-0); LYMPH # 2.6 10^3/uL (1.5-4.5); MEAN CORPUSCULAR HEMOGLOBIN 33.9 pg (27.0-33.0); MEAN CORPUSCULAR HGB CONC 34.2 g/dl (32.0-36.5); MEAN CORPUSCULAR VOLUME 99.3 fl (80.0-96.0); MONO # 0.9 10^3/uL (0.0-0.8); MONO % 10.1 % (0.0-5.0); NEUTROPHILS # 4.9 10^3/uL (1.8-7.7); NEUTROPHILS % 55.9 % (36.0-66.0); PLATELET COUNT, AUTOMATED 255 10^3/uL (150-450); RED CELL DISTRIBUTION WIDTH 12.2 % (11.5-14.5); WHITE BLOOD COUNT 8.8 10^3/uL (4.0-10.0)
[2017-07-03 23:50] LABS: INR 0.88
[2017-07-03 23:58] LABS: ALBUMIN 3.5 GM/DL (3.2-5.2); ALBUMIN/GLOBULIN RATIO 1.09 (1.00-1.93); ALKALINE PHOSPHATASE 69 U/L (45-117); ALT/SGPT 26 U/L (12-78); AMYLASE 44 U/L (25-115); ANION GAP 3 MEQ/L (8-16); AST/SGOT 14 U/L (7-37); BILIRUBIN,DIRECT < 0.1 MG/DL (0.0-0.2); BILIRUBIN,TOTAL 0.2 MG/DL (0.2-1.0); BLOOD UREA NITROGEN 14 MG/DL (7-18); CALCIUM LEVEL 8.8 MG/DL (8.5-10.1); CARBON DIOXIDE LEVEL 29 MEQ/L (21-32); CHLORIDE LEVEL 106 MEQ/L (98-107); CREATININE FOR GFR 0.66 MG/DL (0.55-1.02); GLOMERULAR FILTRATION RATE > 60.0 (>58); GLUCOSE, FASTING 104 MG/DL (70-105); POTASSIUM SERUM 3.9 MEQ/L (3.5-5.1); SODIUM LEVEL 138 MEQ/L (136-145); TOTAL PROTEIN 6.7 GM/DL (6.4-8.2)
--- NOTE | 2017-07-04 02:00 | REPUSA ---
CLINICAL HISTORY: Abdominal pain. TECHNIQUE: Realtime sonographic images were obtained in multiple projections. COMMENTS: The liver is of normal size, parenchyma demonstrates normal echogenicity. No discrete hepatic mass is seen. There is no intra or extrahepatic biliary ductal dilatation. CBD measures 3 mm. The gallbladder is ph ysiologically distended without evidence of calculi. The gallbladder wall is not thickened and there is no pericholecystic fluid. There is no abdominal ascites. The right kidney measures 11.5 cm, free of hydronephrosis. IMPRESSION: Unremarkable study. Thank you for your kind referral of this patient.
[2017-07-04] MEDS ORDERED: KETO10TAB PO (02:14)
[2017-07-04 02:19] VITALS: BP 101/61
== END 2017-07-04 02:32 | disposition home or self-care (01) ==
LOC: M ED 22:59
DX: R10.9 Unspecified abdominal pain (principal); R11.0 Nausea; Z87.19 Personal history of other diseases of the digestive system; Z88.8 Allergy status to other drugs, medicaments and biological substances; Z91.018 Allergy to other foods; Z91.030 Bee allergy status; F17.210 Nicotine dependence, cigarettes, uncomplicated
CPT/HCPCS: 76705; 80048; 80076; 81001; 82150; 83690; 85025; 85610; 87086; 96374; 96375; 99284; C9113; J1885; J2405

== ENCOUNTER → 2017-09-16 | Outpatient (CLI) | payer OTHER, SELFPAY ==
[2017-09-16 13:36] LABS: BASO # 0.1 10^3/uL (0.0-0.2); BASO % 0.9 % (0.0-1.0); EOS # 0.2 10^3/uL (0.0-0.50); EOS % 2.5 % (0.0-3.0); HEMATOCRIT 40.4 % (36.0-47.0); HEMOGLOBIN 13.8 g/dl (12.0-16.0); IMMATURE GRANULOCYTE % 0.3 % (0-0); LYMPH # 2.4 10^3/uL (1.5-4.5); LYMPH % 31.8 % (24.0-44.0); MEAN CORPUSCULAR HEMOGLOBIN 33.3 pg (27.0-33.0); MEAN CORPUSCULAR HGB CONC 34.2 g/dl (32.0-36.5); MEAN CORPUSCULAR VOLUME 97.3 fl (80.0-96.0); MONO % 12.5 % (0.0-5.0); PLATELET COUNT, AUTOMATED 285 10^3/uL (150-450); RED BLOOD COUNT 4.15 10^6/uL (4.00-5.40); RED CELL DISTRIBUTION WIDTH 12.1 % (11.5-14.5); WHITE BLOOD COUNT 7.7 10^3/uL (4.0-10.0)
[2017-09-16 14:06] LABS: ALBUMIN 3.8 GM/DL (3.2-5.2); ALBUMIN/GLOBULIN RATIO 1.46 (1.00-1.93); ALKALINE PHOSPHATASE 64 U/L (45-117); ALT/SGPT 23 U/L (12-78); ANION GAP 5 MEQ/L (8-16); AST/SGOT 18 U/L (7-37); BILIRUBIN,TOTAL 0.4 MG/DL (0.2-1.0); BLOOD UREA NITROGEN 14 MG/DL (7-18); CALCIUM LEVEL 9.1 MG/DL (8.5-10.1); CARBON DIOXIDE LEVEL 29 MEQ/L (21-32); CHLORIDE LEVEL 106 MEQ/L (98-107); CREATININE FOR GFR 0.65 MG/DL (0.55-1.02); FREE T4 0.95 NG/DL (0.76-1.46); GLOMERULAR FILTRATION RATE > 60.0 (>58); GLUCOSE, FASTING 85 MG/DL (70-100); POTASSIUM SERUM 3.9 MEQ/L (3.5-5.1); SODIUM LEVEL 140 MEQ/L (136-145); THYROID STIMULATING HORMONE 0.751 uIU/ML (0.358-3.740); TOTAL PROTEIN 6.4 GM/DL (6.4-8.2)
[2017-09-16 14:13] LABS: TOTAL 25(OH) VITAMIN D 32.2 NG/ML (30.0-100.0)
== END ==
LOC: M WUC 08:54
DX: J30.9 Allergic rhinitis, unspecified (principal); E55.9 Vitamin D deficiency, unspecified
CPT/HCPCS: 84443

== ENCOUNTER 2017-10-07 19:21 | Emergency (ER) | payer OTHER, SELFPAY ==
[2017-10-07] MEDS: TETRACAINE 0.5% OPHTH SOLN 4ML OD (21:00)
[2017-10-07] MEDS: FLUORESCEIN OPHTH 1 MG STRIP OD (21:00)
[2017-10-07] MEDS: AUGMENTIN 875 MG TAB PO (21:00)
[2017-10-07] MEDS: NORCO, ANEXSIA 5/325MG TABLET (HYDROcodone/ACETAMINOPHEN) PO (21:00)
[2017-10-07] MEDS: ERYTHROMYCIN OPHTH OINT OD (22:02)
== END 2017-10-07 22:00 | disposition home or self-care (01) ==
LOC: M ED 19:21
DX: S01.111A Laceration without foreign body of right eyelid and periocular area, initial encounter (principal); W55.89XA Other contact with other mammals, initial encounter; Y92.099 Unspecified place in other non-institutional residence as the place of occurrence of the external cause; Y93.9 Activity, unspecified; F17.200 Nicotine dependence, unspecified, uncomplicated; Z79.899 Other long term (current) drug therapy; Z91.030 Bee allergy status; Z91.018 Allergy to other foods; Z88.8 Allergy status to other drugs, medicaments and biological substances
CPT/HCPCS: 12011

== ENCOUNTER 2018-05-04 22:35 | Emergency (ER) | payer OTHER | END 2018-05-05 01:27 | disposition left against medical advice (07) | LOC: M ED 22:35 | DX: T63.441A Toxic effect of venom of bees, accidental (unintentional), initial encounter (principal); Y92.9 Unspecified place or not applicable; Y93.9 Activity, unspecified; Z53.21 Procedure and treatment not carried out due to patient leaving prior to being seen by health care provider ==

== ENCOUNTER 2019-01-13 09:55 | Day surgery (SDC) | payer OTHER ==
[~2019-01-13] VITALS: Ht 165.1 cm; Wt 62.6 kg
[~2019-01-13 09:55] MED LIST changes: +ALLE180T33 PO; +BACT800T5 PO; +CVS1CAP2 PO; +D 50CAP PO; +ERYT1OIN26 OD; +KEFL500C17 PO; +KETO10TAB PO; +SULF1TAB93; +VITA1TAB27 PO; +[UNRECOGNIZED DRUG - CODE]
[2019-01-13] MEDS ORDERED: LR 1,000 ML IV ONE (10:00)
[2019-01-13] MEDS ORDERED: ROCURONIUM BROMIDE 50 MG/5 ML VIAL As Ordered ONE (12:14)
[2019-01-13] MEDS ORDERED: LIDOCAINE 2% INJ 100 MG/5 ML SDV (FOR ANES.) As Ordered ONE (12:14)
[2019-01-13] MEDS ORDERED: PROPOFOL 200 MG/20 ML VIAL As Ordered ONE (12:14)
[2019-01-13] MEDS ORDERED: ONDANSETRON 4MG/2ML VIAL (J2405) As Ordered ONE (12:19)
[2019-01-13] MEDS ORDERED: dexameTHASONE 4 MG/ML 1ML VIAL (J1100) As Ordered ONE (12:20)
[2019-01-13] MEDS ORDERED: KETOROLAC 60 MG/2 ML VIAL (J1885) As Ordered ONE (12:21)
[2019-01-13] MEDS ORDERED: SUGAMMADEX SODIUM 500 MG/5 ML VIAL (BRIDION) As Ordered ONE (12:22)
[2019-01-13] MEDS ORDERED: MIDAZOLAM INJ 2 MG/2 ML VIAL (J2250) As Ordered ONE ×2 (13:54→16:10)
[2019-01-13] MEDS ORDERED: fentaNYL 250 MCG/5 ML INJECTION (J3010) As Ordered ONE (13:54)
[2019-01-13] MEDS ORDERED: BUPIVACAINE/EPIN 0.25% 30 ML VIAL As Ordered ONE (14:39)
[2019-01-13] MEDS ORDERED: KETAMINE HCL 200 MG/20 ML VIAL As Ordered ONE (16:10)
[2019-01-13] MEDS ORDERED: fentaNYL 100 MCG/2 ML INJECTION (J3010) As Ordered ONE (16:10)
[2019-01-13] MEDS ORDERED: PERCOCET 5MG/325MG TAB As Ordered ONE (16:10)
[2019-01-13] MEDS ORDERED: LR 1,000 ML IV SCH (16:30)
[2019-01-13] MEDS ORDERED: METOCLOPRAMIDE INJ 10MG/2ML VIAL (J2765) IV PRN (16:30)
[2019-01-13] MEDS ORDERED: NORCO, ANEXSIA 5/325MG TABLET (HYDROcodone/ACETAMINOPHEN) PO PRN (16:30)
[2019-01-13] MEDS ORDERED: ONDANSETRON 4MG/2ML VIAL (J2405) IV PRN (16:30)
[2019-01-13] MEDS: fentaNYL 100 MCG/2 ML INJECTION (J3010) IV PRN ×3 (16:40→17:00)
[2019-01-13] MEDS: PERCOCET 5MG/325MG TAB PO PRN ×2 (16:47→17:48)
--- NOTE | 2019-01-13 20:35 | RO ---
DATE OF PROCEDURE: 01/13/2019 PREOPERATIVE DIAGNOSIS: Biliary dyskinesia. POSTOPERATIVE DIAGNOSIS: Biliary dyskinesia. PROCEDURE: Laparoscopic cholecystectomy. SURGEON: Dr. Jony Adan SOFTWARE ENGINEERING MANAGER: Dr. Kam ANESTHESIA: General. ESTIMATED BLOOD LOSS: 5 mL. COMPLICATIONS: None. INDICATIONS FOR PROCEDURE: The patient is a 48-year-old female who presents with right upper quadrant abdominal pain, had normal ultrasound and abnormal HIDA. Recommendation was to proceed with laparoscopic possible open cholecystectomy. The risks and benefits of the procedure not limited to but including bleeding, infection, hernia formation, damage to surrounding structures and need for further surgery were discussed in detail with the patient, informed consent was obtained and procedure was planned. DESCRIPTION OF PROCEDURE: The patient back to operating room eight, after sufficient sedation, the abdomen was sterilely prepped and draped. Next, a time-out was done to confirm proper patient, proper procedure. Following that, a stab incision was made in the left upper quadrant, Veress needle inserted and the abdomen was insufflated to 15 mmHg. Next, a 5 mm supraumbilical midline incision was made and a 5 mm Optiview port was used to gain access to the abdomen. Upon entering, the Veress needle site was examined with no signs of any injury. Veress needle was removed. 11 mm port placed subxiphoid, two 5 mm ports in the right upper quadrant. Fundus of the gallbladder was elevated up towards the right shoulder. Cystic duct and cystic artery were dissected free using a combination of blunt and sharp dissection. Once they were both free, they were both doubly clipped and cut. Gallbladder was then freed from the liver surface using electrocautery. The gallbladder was brought out through the subxiphoid port site in a 10 mm Endo Catch bag. The abdomen was examined once we confirmed hemostasis. The abdomen was then desufflated. Skin incision closed with #4-0 Vicryl subcuticular sutures, the abdomen was cleaned and dried. Steri-Strips, 4x4 and tape were applied thus ending procedure.
[2019-01-13 22:00] VITALS: BP 114/57
== END 2019-01-13 22:00 | disposition home or self-care (01) ==
LOC: M SDC 09:55
PROVIDERS: ATTEND Surgery
DX: K82.8 Other specified diseases of gallbladder (principal); K21.9 Gastro-esophageal reflux disease without esophagitis; E88.09 Other disorders of plasma-protein metabolism, not elsewhere classified; Z79.899 Other long term (current) drug therapy; F17.210 Nicotine dependence, cigarettes, uncomplicated; Z88.8 Allergy status to other drugs, medicaments and biological substances; Z91.030 Bee allergy status
CPT/HCPCS: 47562; 88304; J1100; J1885; J2250; J2405; J3010

== ENCOUNTER → 2019-06-14 | Outpatient (CLI) | payer OTHER ==
[~2019-06-14] MED LIST changes: -OMEP20CA3 PO; +OMEP20CA4 PO
--- NOTE | 2019-06-14 11:45 | REP ---
Five views lumbar spine: 06/14/2019. Indication: Low back pain. Comparison: 09/22/2016. Findings: There is no acute fracture, subluxation or dislocation. Bony alignment is anatomic. No erosive osseous lesions are detected. The patient is status post cholecystectomy. The neural foramen and spinal canal appear patent. Impression: No acute fracture. Electronically Signed by Mars Menjivar DO 06/14/2019 11:37 A
== END ==
LOC: M WUC 11:19
PROVIDERS: ATTEND Family Medicine
DX: R10.9 Unspecified abdominal pain (principal)

== ENCOUNTER → 2020-09-03 | Outpatient (CLI) | payer OTHER, SELFPAY ==
[~2020-09-03] MED LIST changes: -ERYT1OIN26 OD; +ERYT5OIN25 OD; +OMEP1CAP73 PO; -OMEP20CA4 PO
[2020-09-03 16:13] LABS: BASO # 0.1 10^3/uL (0.0-0.2); BASO % 0.8 % (0.0-1.0); EOS # 0.2 10^3/uL (0.0-0.5); HEMATOCRIT 43.6 % (36.0-47.0); HEMOGLOBIN 14.3 g/dl (12.0-15.5); LYMPH # 3.2 10^3/uL (1.5-5.0); LYMPH % 31.5 % (24.0-44.0); MEAN CORPUSCULAR HEMOGLOBIN 33.3 pg (27.0-33.0); MEAN CORPUSCULAR HGB CONC 32.8 g/dl (32.0-36.5); MEAN CORPUSCULAR VOLUME 101.4 fl (80.0-96.0); MONO % 10.2 % (0.0-5.0); NEUTROPHILS # 5.5 10^3/uL (1.5-8.5); NEUTROPHILS % 55.2 % (36.0-66.0); PLATELET COUNT, AUTOMATED 312 10^3/uL (150-450)
[2020-09-03 16:52] LABS: BLOOD UREA NITROGEN 13 MG/DL (7-18); CARBON DIOXIDE LEVEL 28 MEQ/L (21-32); CHLORIDE LEVEL 105 MEQ/L (98-107); CREATININE FOR GFR 0.67 MG/DL (0.55-1.30); GLOMERULAR FILTRATION RATE > 60.0 (>58); GLUCOSE, FASTING 87 MG/DL (70-100); POTASSIUM SERUM 4.5 MEQ/L (3.5-5.1); SODIUM LEVEL 138 MEQ/L (136-145)
[2020-09-03 16:53] LABS: ALT/SGPT 31 U/L (12-78); BILIRUBIN,TOTAL 0.3 MG/DL (0.2-1.0); CALCIUM LEVEL 9.7 MG/DL (8.5-10.1); FREE T4 0.96 NG/DL (0.76-1.46); TOTAL PROTEIN 6.5 GM/DL (6.4-8.2)
[2020-09-03 17:16] LABS: HEMOGLOBIN A1c 5.1 %
== END ==
LOC: M WUC 11:48
PROVIDERS: ATTEND Physician Assistant
DX: R53.83 Other fatigue (principal)

== ENCOUNTER → 2021-05-30 | Outpatient (CLI) | payer BC ==
[~2021-05-30] MED LIST changes: +BACTDSTA; -SULF1TAB93
--- NOTE | 2021-05-30 15:13 | REP ---
INDICATION: EFFUSION, RIGHT ANKLE COMPARISON: None. TECHNIQUE: AP, lateral, bilateral oblique views. FINDINGS: Mild age-related degenerative changes are appreciated. There is a corticated ovoid 4 mm fragment adjacent to the medial malleolus which may represent sequelae of old injury. No acute fracture or dislocation. Ankle mortise appears intact. Lateral view demonstrates small calcaneal heel spur. IMPRESSION: Degenerative changes. Possible old injury along the medial malleolus. <Electronically signed by Tirso Boss > 05/30/21 [id number]
== END ==
LOC: M PLALAB 14:46 → M PLAIMG 14:46
PROVIDERS: ATTEND Nurse Practitioner Family
DX: M25.471 Effusion, right ankle (principal); M19.071 Primary osteoarthritis, right ankle and foot

== ENCOUNTER → 2021-09-17 | Outpatient (CLI) | payer BC ==
[2021-09-17 15:04] LABS: ALBUMIN 4.1 GM/DL (3.2-5.2); ALT/SGPT 31 U/L (12-78); BILIRUBIN,TOTAL 0.7 MG/DL (0.2-1.0); BLOOD UREA NITROGEN 13 MG/DL (7-18); CALCIUM LEVEL 9.6 MG/DL (8.5-10.1); CARBON DIOXIDE LEVEL 26 MEQ/L (21-32); CHLORIDE LEVEL 108 MEQ/L (98-107); CREATININE FOR GFR 0.57 MG/DL (0.55-1.30); GLOMERULAR FILTRATION RATE > 60.0 (>51); GLUCOSE, FASTING 83 MG/DL (70-100); POTASSIUM SERUM 4.1 MEQ/L (3.5-5.1); SODIUM LEVEL 140 MEQ/L (136-145); THYROID STIMULATING HORMONE 0.919 uIU/ML (0.358-3.740)
[2021-09-17 15:06] LABS: TOTAL 25(OH) VITAMIN D 51.7 NG/ML (30.0-100.0)
[2021-09-17 15:25] LABS: HEMOGLOBIN A1c 5.3 %
== END ==
LOC: M PLALAB 09:32
PROVIDERS: ATTEND Nurse Practitioner Adult Health
DX: Z13.1 Encounter for screening for diabetes mellitus (principal); Z83.3 Family history of diabetes mellitus; E55.9 Vitamin D deficiency, unspecified; Z13.29 Encounter for screening for other suspected endocrine disorder

== ENCOUNTER → 2022-01-23 | Outpatient (CLI) | payer BC ==
[~2022-01-23] MED LIST changes: +MONT10TA97 PO
== END ==
LOC: M LABSMTC 09:57
PROVIDERS: ATTEND Anesthesiology
DX: Z01.812 Encounter for preprocedural laboratory examination (principal); Z20.822 Contact with and (suspected) exposure to COVID-19

== ENCOUNTER 2022-01-28 08:29 | Day surgery (SDC) | payer BC ==
[~2022-01-28] VITALS: Ht 165.1 cm; Wt 59.0 kg
[~2022-01-28 08:29] MED LIST changes: +NS 1,000 ML IV ONE
[2022-01-28 10:20] VITALS: BP 118/71
== END 2022-01-28 10:28 | disposition home or self-care (01) ==
LOC: M OPP 08:29
PROVIDERS: ATTEND Surgery
DX: Z86.010 Personal history of colon polyps (principal); D12.2 Benign neoplasm of ascending colon; K63.5 Polyp of colon; K57.30 Diverticulosis of large intestine without perforation or abscess without bleeding; K64.1 Second degree hemorrhoids; Z79.899 Other long term (current) drug therapy; Z88.8 Allergy status to other drugs, medicaments and biological substances; Z91.018 Allergy to other foods; Z91.030 Bee allergy status

== ENCOUNTER → 2022-02-11 | Outpatient (CLI) | payer BC ==
[~2022-02-11] MED LIST changes: -NS 1,000 ML IV ONE
== END ==
LOC: M WHC 07:44
PROVIDERS: ATTEND Obstetrics & Gynecology
DX: Z12.31 Encounter for screening mammogram for malignant neoplasm of breast (principal); Z13.820 Encounter for screening for osteoporosis; R92.2 Inconclusive mammogram

== ENCOUNTER → 2022-02-26 | Outpatient (CLI) | payer BC | LOC: M WHC 09:50 | PROVIDERS: ATTEND Advanced Practice Midwife | DX: Z12.31 Encounter for screening mammogram for malignant neoplasm of breast (principal) | CPT/HCPCS: 77066; G0279 ==

== ENCOUNTER → 2022-08-06 | Outpatient (CLI) | payer BC ==
[~2022-08-06] MED LIST changes: +ERGO500029 PO; +PROA1AER2 INH; +[UNRECOGNIZED DRUG - OTHER] PO
== END ==
LOC: M LABSMTC 10:12
PROVIDERS: ATTEND Anesthesiology
DX: Z01.812 Encounter for preprocedural laboratory examination (principal); Z11.52 Encounter for screening for COVID-19

== ENCOUNTER 2022-08-11 11:12 | Day surgery (SDC) | payer BC ==
[~2022-08-11] VITALS: Ht 165.1 cm; Wt 60.2 kg
[2022-08-11] MEDS ORDERED: LR 1,000 ML IV SCH (11:50)
[2022-08-11] MEDS ORDERED: MIDAZOLAM INJ 2MG/2ML VIAL (J2250 PER 1MG) As Ordered ONE (12:58)
[2022-08-11] MEDS ORDERED: propofoL 200 MG/20 ML VIAL As Ordered ONE ×2 (12:58→14:17)
[2022-08-11] MEDS ORDERED: fentaNYL 100 MCG/2 ML INJECTION As Ordered ONE (12:58)
[2022-08-11] MEDS ORDERED: ONDANSETRON 4MG 2ML VIAL As Ordered ONE (12:58)
[2022-08-11] MEDS ORDERED: LIDOCAINE 2% 100MG/5ML SDV (FOR ANES.) As Ordered ONE (12:58)
[2022-08-11] MEDS ORDERED: ACETAMINOPHEN 1000MG 100ML IV BAG As Ordered ONE (13:35)
[2022-08-11] MEDS ORDERED: LIDOCAINE W/EPINEPHRINE 1% 20ML VIAL As Ordered ONE (13:36)
[2022-08-11] MEDS ORDERED: oxyCODONE 5MG TAB PO PRN (14:35)
[2022-08-11] MEDS ORDERED: ONDANSETRON 4MG 2ML VIAL IV PRN (14:35)
[2022-08-11] MEDS ORDERED: fentaNYL 100 MCG/2 ML INJECTION IV PRN (14:35)
[2022-08-11 15:30] VITALS: BP 124/70
== END 2022-08-11 15:30 | disposition home or self-care (01) ==
LOC: M SDC 11:12
PROVIDERS: ATTEND Otolaryngology
DX: K13.79 Other lesions of oral mucosa (principal); J45.909 Unspecified asthma, uncomplicated; F17.229 Nicotine dependence, chewing tobacco, with unspecified nicotine-induced disorders; Z79.899 Other long term (current) drug therapy; Z91.018 Allergy to other foods; Z91.030 Bee allergy status; Z79.51 Long term (current) use of inhaled steroids; E88.09 Other disorders of plasma-protein metabolism, not elsewhere classified; Z88.8 Allergy status to other drugs, medicaments and biological substances; F17.200 Nicotine dependence, unspecified, uncomplicated
CPT/HCPCS: 40810; 88304; J0131; J1100; J2250; J2405; J3010

== ENCOUNTER → 2022-11-19 | Outpatient (CLI) | payer BC ==
[2022-11-19 13:46] LABS: ALBUMIN 3.9 G/DL (3.2-5.2); ALKALINE PHOSPHATASE 71 U/L (46-116); ALT/SGPT 20 U/L (7.0-40); AST/SGOT 17 U/L (<34); BILIRUBIN,TOTAL 0.4 MG/DL (0.3-1.2); BLOOD UREA NITROGEN 13 MG/DL (9-23); CALCIUM LEVEL 9.6 MG/DL (8.5-10.1); CARBON DIOXIDE LEVEL 26 MMOL/L (20-31); CHLORIDE LEVEL 106 MMOL/L (98-107); CREATININE FOR GFR 0.48 MG/DL (0.55-1.30); GLOMERULAR FILTRATION RATE > 60.0 (>51); GLUCOSE, FASTING 102 MG/DL (60-100); HEMATOCRIT 41.8 % (36.0-47.0); HEMOGLOBIN 14.2 g/dl (12.0-15.5); MEAN CORPUSCULAR HEMOGLOBIN 33.2 pg (27.0-33.0); MEAN CORPUSCULAR VOLUME 97.7 fl (80.0-96.0); PLATELET COUNT, AUTOMATED 289 10^3/uL (150-450); POTASSIUM SERUM 4.4 MMOL/L (3.5-5.1); RED BLOOD COUNT 4.28 10^6/uL (4.00-5.40); SODIUM LEVEL 138 MMOL/L (136-145); TOTAL PROTEIN 6.5 G/DL (5.7-8.2); WHITE BLOOD COUNT 6.2 10^3/uL (4.0-10.0)
[2022-11-19 13:53] LABS: C REACTIVE PROTEIN QUANTITATIV < 0.40 MG/DL (<1.0)
[2022-11-20 14:08] LABS: ANTINUCLEAR ANTIBODIES DIRECT Negative (Negative)
== END ==
LOC: M PLALAB 11:20
PROVIDERS: ATTEND Nurse Practitioner Adult Health
DX: R23.1 Pallor (principal)

== ENCOUNTER → 2023-01-09 | Outpatient (REF) | payer BC | LOC: M LAB REF 16:03 | PROVIDERS: ATTEND Internal Medicine Gastroenterology | DX: R19.7 Diarrhea, unspecified (principal) ==

== ENCOUNTER → 2023-01-11 | Outpatient (CLI) | payer BC ==
[2023-01-11 13:39] LABS: BASO # 0.1 10^3/uL (0.0-0.2); BASO % 0.7 % (0.0-1.0); EOS # 0.1 10^3/uL (0.0-0.5); EOS % 1.3 % (0.0-3.0); HEMATOCRIT 41.8 % (36.0-47.0); HEMOGLOBIN 14.2 g/dl (12.0-15.5); LYMPH # 2.6 10^3/uL (1.5-5.0); LYMPH % 29.6 % (24.0-44.0); MEAN CORPUSCULAR HEMOGLOBIN 33.2 pg (27.0-33.0); MEAN CORPUSCULAR VOLUME 97.7 fl (80.0-96.0); MONO # 0.9 10^3/uL (0.0-0.8); MONO % 9.8 % (2.0-8.0); NEUTROPHILS # 5.2 10^3/uL (1.5-8.5); PLATELET COUNT, AUTOMATED 294 10^3/uL (150-450); RED BLOOD COUNT 4.28 10^6/uL (4.00-5.40); WHITE BLOOD COUNT 8.9 10^3/uL (4.0-10.0)
[2023-01-11 14:10] LABS: ALBUMIN 3.7 G/DL (3.2-5.2); ALKALINE PHOSPHATASE 66 U/L (46-116); ALT/SGPT 23 U/L (7.0-40); AST/SGOT 21 U/L (<34); BILIRUBIN,DIRECT 0.2 MG/DL (<0.4); BILIRUBIN,TOTAL 0.6 MG/DL (0.3-1.2); BLOOD UREA NITROGEN 12 MG/DL (9-23); CREATININE FOR GFR 0.71 MG/DL (0.55-1.30); GLOMERULAR FILTRATION RATE > 60.0 (>51); TOTAL PROTEIN 6.4 G/DL (5.7-8.2)
[2023-01-14 10:11] LABS: IGASUB2 148.7 mg/dL (73.2-301.2); IGASUB3 48.8 mg/dL (13.4-97.9); IgA SERUM (part of Subclasses) 217 mg/dL (87-352); TISSUE TRANSGLUTAMINASE IgA <2 U/mL (0-3)
== END ==
LOC: M LABDRWAD 07:34
PROVIDERS: ATTEND Internal Medicine Gastroenterology
DX: R19.7 Diarrhea, unspecified (principal)

== ENCOUNTER 2023-03-19 07:46 | Day surgery (SDC) | payer BC ==
[~2023-03-19] VITALS: Ht 167.6 cm; Wt 51.7 kg
[~2023-03-19 07:46] MED LIST changes: +LIDOCAINE 2% 100MG/5ML SDV (FOR ANES.) As Ordered ONE; +NS 1,000 ML IV ONE; +SPIR50TA4 PO; +propofoL 200 MG/20 ML VIAL As Ordered ONE
[2023-03-19 10:14] VITALS: BP 106/65; O2SAT 100
== END 2023-03-19 10:21 | disposition home or self-care (01) ==
LOC: M OPP 07:46
PROVIDERS: ATTEND Internal Medicine Gastroenterology
DX: R19.4 Change in bowel habit (principal); K63.5 Polyp of colon; K64.4 Residual hemorrhoidal skin tags; K64.8 Other hemorrhoids; K57.30 Diverticulosis of large intestine without perforation or abscess without bleeding; F17.290 Nicotine dependence, other tobacco product, uncomplicated; Z79.51 Long term (current) use of inhaled steroids; Z79.899 Other long term (current) drug therapy; Z88.8 Allergy status to other drugs, medicaments and biological substances; Z91.018 Allergy to other foods; Z91.030 Bee allergy status

== ENCOUNTER → 2023-07-30 | Outpatient (REF) | payer BC ==
[~2023-07-30] MED LIST changes: -LIDOCAINE 2% 100MG/5ML SDV (FOR ANES.) As Ordered ONE; -NS 1,000 ML IV ONE; -propofoL 200 MG/20 ML VIAL As Ordered ONE
== END ==
LOC: M SFHCPLAZ 15:45
PROVIDERS: ATTEND Family Medicine
DX: Z53.9 Procedure and treatment not carried out, unspecified reason (principal); F17.200 Nicotine dependence, unspecified, uncomplicated; E55.9 Vitamin D deficiency, unspecified

== ENCOUNTER → 2023-07-30 | Outpatient (CLI) | payer BC ==
[2023-07-30 17:50] LABS: BASO # 0.1 10^3/uL (0.0-0.2); BASO % 0.8 % (0.0-1.0); EOS # 0.2 10^3/uL (0.0-0.5); EOS % 1.7 % (0.0-3.0); HEMATOCRIT 47.6 % (36.0-47.0); LYMPH # 2.3 10^3/uL (1.5-5.0); LYMPH % 23.9 % (24.0-44.0); MEAN CORPUSCULAR HEMOGLOBIN 33.2 pg (27.0-33.0); MEAN CORPUSCULAR HGB CONC 33.6 g/dl (32.0-36.5); MEAN CORPUSCULAR VOLUME 98.8 fl (80.0-96.0); MONO # 0.8 10^3/uL (0.0-0.8); MONO % 7.8 % (2.0-8.0); NEUTROPHILS # 6.4 10^3/uL (1.5-8.5); NEUTROPHILS % 65.4 % (36.0-66.0); PLATELET COUNT, AUTOMATED 304 10^3/uL (150-450); RED BLOOD COUNT 4.82 10^6/uL (4.00-5.40); WHITE BLOOD COUNT 9.8 10^3/uL (4.0-10.0)
[2023-07-30 18:20] LABS: ALBUMIN 4.1 G/DL (3.2-5.2); ALKALINE PHOSPHATASE 72 U/L (46-116); ALT/SGPT 25 U/L (7.0-40); AST/SGOT 17 U/L (<34); BILIRUBIN,TOTAL 0.4 MG/DL (0.3-1.2); BLOOD UREA NITROGEN 16 MG/DL (9-23); CALCIUM LEVEL 10.1 MG/DL (8.5-10.1); CARBON DIOXIDE LEVEL 29 MMOL/L (20-31); CHLORIDE LEVEL 106 MMOL/L (98-107); CREATININE FOR GFR 0.59 MG/DL (0.55-1.30); GLOMERULAR FILTRATION RATE > 60.0 (>51); GLUCOSE, FASTING 85 MG/DL (60-100); POTASSIUM SERUM 4.6 MMOL/L (3.5-5.1); SODIUM LEVEL 141 MMOL/L (136-145)
[2023-07-30 18:22] LABS: TOTAL 25(OH) VITAMIN D 47.9 NG/ML (20.0-100.0)
[2023-07-30 18:24] LABS: PTH INTACT 44.5 PG/ML (18.5-88.0)
== END ==
LOC: M PLALAB 15:51
PROVIDERS: ATTEND Family Medicine
DX: E55.9 Vitamin D deficiency, unspecified (principal); F17.210 Nicotine dependence, cigarettes, uncomplicated; L25.9 Unspecified contact dermatitis, unspecified cause

== ENCOUNTER → 2023-10-15 | Outpatient (REF) | payer BC ==
[2023-10-15 20:38] LABS: Trichomonas vaginalis (AMP) NOT DETECTED (NEGATIVE)
[2023-10-15 21:02] LABS: GC DNA AMPLIFICATION NEGATIVE (NEGATIVE)
== END ==
LOC: M SFHCPLAZ 17:31
PROVIDERS: ATTEND Student in an Organized Health Care Education/Training Program
DX: N89.8 Other specified noninflammatory disorders of vagina (principal)

== ENCOUNTER → 2024-08-29 | Outpatient (CLI) | payer BC ==
[2024-08-29 10:44] LABS: APPEARANCE, URINE CLEAR (CLEAR); BACTERIA, URINE AUTO NEGATIVE (NEGATIVE); BILIRUBIN, URINE AUTO NEGATIVE (NEGATIVE); BLOOD, URINE BLOOD NEGATIVE (NEGATIVE); COLOR, URINE YELLOW (YELLOW); GLUCOSE, URINE (UA) AUTO NEGATIVE (NEGATIVE); KETONE, URINE AUTO NEGATIVE (NEGATIVE); LEUKOCYTE ESTERASE, URINE AUTO NEGATIVE (NEGATIVE); NITRITE, URINE AUTO NEGATIVE (NEGATIVE); PROTEIN, URINE AUTO NEGATIVE (NEGATIVE); RBC, URINE AUTO 0 /HPF (0-3); SPECIFIC GRAVITY URINE AUTO 1.019 (1.002-1.035); SQUAMOUS EPITHELIAL CELL UR AU 3 /HPF (0-6); UROBILINOGEN, URINE AUTO 0.2 mg/dL (0.0-2.0); WBC, URINE AUTO 1 /HPF (0-3)
[2024-08-29 11:25] LABS: HEMATOCRIT 46.2 % (36.0-47.0); HEMOGLOBIN 15.7 g/dl (12.0-15.5); MEAN CORPUSCULAR HEMOGLOBIN 32.8 pg (27.0-33.0); MEAN CORPUSCULAR VOLUME 96.7 fl (80.0-96.0); PLATELET COUNT, AUTOMATED 335 10^3/uL (150-450); RED BLOOD COUNT 4.78 10^6/uL (4.00-5.40); WHITE BLOOD COUNT 6.4 10^3/uL (4.0-10.0)
[2024-08-29 12:02] LABS: HEMOGLOBIN A1c 5.4 % (4.0-6.0)
[2024-08-29 12:08] LABS: ALKALINE PHOSPHATASE 85 U/L (35-104); ALT/SGPT 23 U/L (7.0-40); AST/SGOT 17 U/L (<34); BILIRUBIN,TOTAL 0.6 MG/DL (0.3-1.2); BLOOD UREA NITROGEN 19 MG/DL (9-23); CALCIUM LEVEL 10.5 MG/DL (8.5-10.1); CARBON DIOXIDE LEVEL 28 MMOL/L (20-31); CHLORIDE LEVEL 104 MMOL/L (98-107); CHOLESTEROL LEVEL 182 MG/DL (<200); CHOLESTEROL RISK RATIO 2.53 (<5); CREATININE FOR GFR 0.65 MG/DL (0.55-1.30); FREE T4 1.27 NG/DL (0.89-1.76); GLOMERULAR FILTRATION RATE > 60.0 (>51); GLUCOSE, FASTING 97 MG/DL (60-100); HDL CHOLESTEROL 71.8 MG/DL (>40); LDL CHOLESTEROL 99.8 MG/DL (<100); NON-HDL-C 110.2 MG/DL; POTASSIUM SERUM 4.8 MMOL/L (3.5-5.1); SODIUM LEVEL 140 MMOL/L (136-145); THYROID STIMULATING HORMONE 0.837 uIU/ML (0.55-4.78); TOTAL PROTEIN 6.8 G/DL (5.7-8.2); TRIGLYCERIDES LEVEL 52 MG/DL (<150)
== END ==
LOC: M PLALAB 07:54
PROVIDERS: ATTEND Nurse Practitioner Adult Health
DX: K63.5 Polyp of colon (principal)

== ENCOUNTER → 2025-07-27 | Outpatient (CLI) | payer BC ==
[~2025-07-27] MED LIST changes: -BACTDSTA; +SULF-8
== END ==
LOC: M PLAIMG 13:17
PROVIDERS: ATTEND Nurse Practitioner Adult Health
DX: M54.31 Sciatica, right side (principal); M25.551 Pain in right hip